=== PATIENT | male | born 1955 | race Caucasian/White ===

== ENCOUNTER 2017-01-20 11:41 | Inpatient (IN) | payer OTHER ==
--- NOTE | 2017-01-20 12:50 | EDPHY ---
H & P Smoking Status: Never smoked Time Seen by Provider: 01/20/17 11:58 HPI/ROS: CHIEF COMPLAINT: Cellulitis right leg HISTORY OF PRESENT ILLNESS: 61-year-old male presents to the emergency department with cellulitis to his right lower leg. The patient has a history of recurring cellulitis. He thinks that this is the 5th time in the last 5 years. He takes doxycycline daily prophylactically. He started noting pain and swelling yesterday and he states that it is worse this morning. He took ibuprofen earlier this morning. Unknown fevers and chills. No pain in his groin. He feels that this is very similar to his previous recurring cellulitis infections typically in the right leg. He has had both legs in the past. He did note some swelling in his left lower leg. He denies chest pain or difficulty breathing. Denies abdominal pain. Denies neck or back pain. REVIEW OF SYSTEMS: Constitutional: No fever, no chills. Eyes: No double or blurry vision. ENT: No sore throat. Respiratory: No cough, no shortness of breath. Cardiac: No chest pain. Gastrointestinal: No abdominal pain, vomiting or diarrhea. Genitourinary: No dysuria. Musculoskeletal: No neck or back pain. Skin: No rashes. Neurological: No headache. (Meghan Mclean M) Past Medical/Surgical History: Traumatic brain injury, dyslipidemia, chronic back pain with narcotic dependence , depression, GERD, recurring cellulitis not MRSA,, migraine headaches, bipolar , hypertension (Stefanie Mcleana M) Social History: and lives in [place] (Vinay,Meghan M) Physical Exam: General Appearance: Alert, no distress. Temperature 37.1degrees, 90% on room air Eyes: Pupils equal and round. Extraocular motions are all intact. ENT: Mouth: Mucous membranes moist. Respiratory: No wheezing, rhonchi, or rales, lungs are clear to auscultation. Cardiovascular: Regular rate and rhythm. Gastrointestinal: Abdomen is soft and nontender, no masses, no rebound or guarding, bowel sounds normal. Neurological: Alert and oriented x 3, cranial nerves II through XII grossly intact Skin: Warm and dry, no rashes. Musculoskeletal: Nontender to palpate along the cervical, thoracic or lumbar spine. Neck is supple. Extremities: 3+ Pedal edema noted bilaterally. Redness and warmth noted to the anterior aspect of the right mid calf down to the ankle. It is mildly tender to palpate. It is warm. No abrasions. Full range of motion of his ankles. Full range of motion of his knee. Well-healed surgical incision noted to the anterior aspect of the right knee. Psychiatric: Patient is oriented X 3, there is no agitation. (Meghan Mclean) Constitutional: Initial Vital Signs Temperature (C) 37.1 C 01/20/17 11:51 Heart Rate 70 01/20/17 11:51 Respiratory Rate 16 01/20/17 11:51 Blood Pressure 142/75 H 01/20/17 11:51 O2 Sat (%) 90 L 01/20/17 11:51 O2 Delivery Mode Room Air Allergies/Adverse Reactions: Sulfa (Sulfonamide Antibiotics) Allergy (Mild, Verified 04/08/16 18:41) RASH/RED SKIN YELLOWJACKETS Allergy (Severe, Uncoded 01/03/14 23:30) INFLAMMED AND SWOLLEN ENVIRONMENTAL Allergy (Mild, Uncoded 01/03/14 23:30) NASAL CONGESTION Home Medications: Medication Instructions Recorded Butterbur Root Extract [Petadolex 75 mg PO TID 04/08/16 75] Fluticasone Nasal [Flonase Nasal 4 sprays NASAL HS 04/08/16 [facility]] HYDROmorphone HCL [Dilaudid] 8 mg PO TID 04/08/16 Methocarbamol [Robaxin 750 mg (*)] 750 mg PO TID 04/08/16 OLANZapine [ZyPREXA 2.5 mg (*)] 2.5 mg PO 04/08/16 Oxymorphone HCl [OPANA ER] 15 mg PO TID 04/08/16 Sertraline HCl [Zoloft 50mg (*)] 150 mg PO DAILY 04/08/16 Chondroitin Sulfate A Sodium 1,200 mg PO DAILY 04/27/16 [Optiflex-C] Gluc Dee/Chondro Dee A/Vit C/Mn 1 each PO BID 04/27/16 [Glucosamine 1,500 Complex Cap] ALPRAZolam [Xanax 1 MG (*)] 1 mg PO DAILY PRN 01/20/17 Aspirin [Aspirin 81mg (*)] 81 mg PO DAILY 01/20/17 Brimonidine/Timolol [Combigan (*)] 1 drops EACHEYE HS 01/20/17 Cholecalciferol Vit D3 [Vitamin D3 2,000 units PO BID 01/20/17 (*)] Cyanocobalamin [Vitamin B12 (*)] 1,000 mcg PO DAILY 01/20/17 Desloratadine [Clarinex] 5 mg PO DAILY PRN 01/20/17 Diclofenac 35 35 mg PO TID 01/20/17 Docusate Sodium [Colace 100 MG (*)] 200 mg PO HS 01/20/17 Feosol 28 mg PO DAILY 01/20/17 Fish Oil/Dha/Epa [Fish Oil 1,200 2 cap PO BID 01/20/17 mg Fish Oil] Fluocinonide 1 gm TP DAILY PRN 01/20/17 Herbals/Supplements -Info Only 1 ea PO DAILY 01/20/17 Lansoprazole [Prevacid] 30 mg PO DAILY 01/20/17 Magnesium Oxide [Magnesium] 500 mg PO HS 01/20/17 Melatonin [Melatonin 3 MG (*)] 3 mg PO HS 01/20/17 OLANZapine [ZyPREXA 2.5 mg (*)] 10 mg PO HS 01/20/17 TESTOSTERONE [Androgel 1.62% pump] 5 g TD DAILY 01/20/17 Travoprost Z 0.004% [Travatan Z 1 drops EACHEYE HS 01/20/17 0.004% (*)] Zaleplon [Sonata] 10 mg PO HS PRN 01/20/17 Zolpidem Tartrate [Ambien 10 mg] 10 mg PO HS PRN 01/20/17 Cephalexin [Keflex (*)] 500 mg PO Q6H #40 cap 01/22/17 Medical Decision Making ED Course/Re-evaluation: 61-year-old male presents to the emergency department with cellulitis to his right lower extremity. The patient has had this numerous times. No history of MRSA. The patient has already been taking doxycycline prophylactically. I feel that given that he has failed outpatient management, he will be admitted to the hospital for IV antibiotics. Patient will be admitted to Dr. Julio Cevallos. I spoke with the on-call infectious disease doctor, Dr. Sherri Guzman today, who recommended 1 g of cefazolin IV given normal renal function. (Meghan Mclean) I did not see this patient while he was in the emergency department. However his care was discussed with the PA while the patient was in the department. I agree with treatment plan and management (Marcelo Acosta) Differential Diagnosis: Including but not limited to cellulitis, DVT, necrotizing fasciitis, congestive heart failure (Meghan Mclean) - Data Points Laboratory Results: Laboratory Results 01/20/17 12:50 01/20/17 12:50 Medications Given: Discontinued Medications Acetaminophen (Tylenol) 650 mg PO Q4HRS PRN PRN Reason: Pain, Mild/Fever, Can Take PO Stop: 07/19/17 13:32 Last Admin: 01/21/17 13:00 Dose: 650 mg Aspirin (Aspirin) 81 mg PO DAILY [facility]I Stop: 07/20/17 08:59 Last Admin: 01/22/17 09:27 Dose: 81 mg Brimonidine/Timolol (Combigan) 1 drops EACHEYE CASI Stop: 07/19/17 20:59 Last Admin: 01/21/17 20:25 Dose: 1 drops Cholecalciferol (Vitamin D) 2,000 units PO BID [facility] Stop: 07/19/17 20:59 Last Admin: 01/22/17 09:27 Dose: 2,000 units Docusate Sodium (Colace) 200 mg PO HS [facility]I Stop: 07/19/17 20:59 Last Admin: 01/21/17 20:24 Dose: 200 mg Enoxaparin Sodium (Lovenox) 40 mg SC DAILY [facility] Stop: 07/20/17 08:59 Last Admin: 01/22/17 09:30 Dose: 40 mg Ferrous Sulfate (Slow Fe) 140 mg PO DAILY [facility] Stop: 07/20/17 08:59 Last Admin: 01/22/17 09:28 Dose: 140 mg Fluticasone Propionate (Flonase Nasal [facility]) 4 sprays EACHNARE HS [facility]I Stop: 07/19/17 20:59 Last Admin: 01/21/17 20:25 Dose: 4 sprays Furosemide (Lasix Injection) 20 mg IVP EDNOW ONE Stop: 01/20/17 13:39 Last Admin: 01/20/17 14:35 Dose: 20 mg Glucosamine/Chondroitin (Glucosamine/Chondroitin) 1 each PO BID [facility] Stop: 07/20/17 08:59 Last Admin: 01/22/17 09:28 Dose: 1 each Hydromorphone HCl (Dilaudid) 8 mg PO TID [facility] Stop: 01/30/17 15:59 Last Admin: 01/22/17 09:27 Dose: 8 mg Cefazolin Sodium/Dextrose (Ancef 1 Gm (Premix)) 50 mls @ 200 mls/hr IV EDNOW ONE PRN Reason: Protocol Stop: 01/20/17 13:42 Last Admin: 01/20/17 13:58 Dose: 50 mls Cefazolin Sodium/Dextrose (Ancef 1 Gm (Premix)) 50 mls @ 200 mls/hr IV Q8H CASI PRN Reason: Protocol Stop: 02/19/17 20:59 Last Admin: 01/21/17 04:54 Dose: 50 mls Cefazolin Sodium/Dextrose (Ancef 2 Gm (Premix)) 100 mls @ 200 mls/hr IV Q8HRS [facility]I PRN Reason: Protocol Stop: 02/20/17 12:59 Last Admin: 01/22/17 13:46 Dose: 100 mls Magnesium Oxide (Magnesium Oxide) 400 mg PO HS [facility] Stop: 07/19/17 20:59 Last Admin: 01/21/17 20:24 Dose: 400 mg Melatonin (Melatonin) 3 mg PO [facility] Stop: 07/19/17 20:59 Last Admin: 01/21/17 21:55 Dose: 3 mg Methocarbamol (Robaxin) 750 mg PO TID [facility] Stop: 07/19/17 15:59 Last Admin: 01/22/17 09:28 Dose: 750 mg Miscellaneous Medication (Butterbur Root Extract [Petadolex 75]) 75 mg PO TID [facility] Stop: 07/19/17 15:59 Last Admin: 01/22/17 14:44 Dose: Not Given Miscellaneous Medication (Chondroitin Sulfate A Sodium [Optiflex-C]) 1,200 mg PO DAILY [facility] Stop: 07/20/17 08:59 Last Admin: 01/22/17 09:31 Dose: Not Given Miscellaneous Medication (Diclofenac 35) 35 mg PO TID [facility] Stop: 07/19/17 15:59 Last Admin: 01/22/17 14:44 Dose: Not Given Miscellaneous Medication (Oxymorphone Hcl [Opana Er]) 15 mg PO TID [facility] Stop: 07/19/17 15:59 Last Admin: 01/22/17 09:51 Dose: 15 mg Miscellaneous Medication (Testosterone [Androgel 1.62% Pump]) 5 g TD DAILY [facility] Stop: 07/20/17 08:59 Last Admin: 01/22/17 09:33 Dose: Not Given Olanzapine (Zyprexa) 2.5 mg PO 12 [facility] Stop: 07/20/17 08:59 Last Admin: 01/22/17 12:23 Dose: 2.5 mg Olanzapine (Olanzapine) 10 mg PO HS [facility] Stop: 07/19/17 20:59 Last Admin: 01/21/17 20:29 Dose: 10 mg [id number] Ethyl Esters (Fish Oil) 2,000 mg PO BID [facility] Stop: 07/19/17 20:59 Last Admin: 01/22/17 09:28 Dose: 2,000 mg Pantoprazole Sodium (Protonix) 40 mg PO DAILY [facility] Stop: 07/20/17 08:59 Last Admin: 01/22/17 09:27 Dose: 40 mg Sertraline HCl (Zoloft) 150 mg PO DAILY [facility] Stop: 07/20/17 08:59 Last Admin: 01/22/17 09:28 Dose: 150 mg Travoprost (Travatan Z 0.004%) 1 drops EACHEYE HS [facility] Stop: 07/19/17 20:59 Last Admin: 01/21/17 20:24 Dose: 1 drop Vitamin B Complex (Vitamin B12) 1,000 mcg PO DAILY [facility] Stop: 07/20/17 08:59 Last Admin: 01/22/17 09:28 Dose: 1,000 mcg Zolpidem Tartrate (Ambien) 10 mg PO HS PRN PRN Reason: Sleep/Insomnia Stop: 07/19/17 15:18 Last Admin: 01/21/17 21:56 Dose: 10 mg Departure - Departure Disposition: [facility] Inpatient Acute Clinical Impression: Cellulitis of right leg Condition: Good
[2017-01-20 13:16] LABS: % IMMATURE GRANULYOCYTES 0.4 % (0.0-1.1); ABSOLUTE IMMATURE GRANULOCYTES 0.05 10^3/uL (0.00-0.10); ADD DIFF? NO; ADD MORPH? NO; ADD SCAN? NO; ATYPICAL LYMPHOCYTE FLAG 0 (0-99); FRAGMENT RBC FLAG 0 (0-99); HEMATOCRIT 40.1 % (40.0-51.0); HEMOGLOBIN 13.7 g/dL (13.7-17.5); LEFT SHIFT FLG 0 (0-99); LIPEMIA HEMOLYSIS FLAG 90 (0-99); MEAN CELL HEMOGLOBIN 30.4 pg (27.9-34.1); MEAN CELL HEMOGLOBIN CONCENTR. 34.2 g/dL (32.4-36.7); MEAN CELL VOLUME 88.9 fL (81.5-99.8); MEAN PLATELET VOLUME 11.2 fL (8.7-11.7); PLATELET CLUMPS FLAG 0 (0-99); PLATELET COUNT 176 10^3/uL (150-400); RED BLOOD CELL COUNT 4.51 10^6/uL (4.40-6.38); RED CELL DISTRIBUTION WIDTH 12.5 % (11.5-15.2)
[2017-01-20 13:28] LABS: ANION GAP 11 mEq/L (8-16); CALCIUM 9.7 mg/dL (8.5-10.4); CARBON DIOXIDE 25 mEq/l (22-31); CHLORIDE 100 mEq/L (97-110); GLOMERULAR FILTRATION RATE > 60; GLUCOSE 123 mg/dL (70-100); POTASSIUM 4.3 mEq/L (3.5-5.2); SODIUM 136 mEq/L (134-144)
[2017-01-20] MEDS ORDERED: ONDANSETRON 4 MG/2 ML VIAL IVP PRN (13:33)
[2017-01-20] MEDS ORDERED: OXYCODONE/APAP 5/325 TAB PO PRN (13:33)
[2017-01-20] MEDS ORDERED: ONDANSETRON DISINTEGRATING 4 MG TAB PO PRN (13:33)
[2017-01-20] MEDS ORDERED: FUROSEMIDE 20 MG/2 ML VIAL IVP ONE (13:38)
[2017-01-20] MEDS ORDERED: FLUOCINONIDE 0.05% 15 GM CREAM TP PRN (14:06)
[2017-01-20] MEDS ORDERED: ALPRAZolam 1 MG TAB PO PRN (14:06)
--- NOTE | 2017-01-20 14:13 | GHP ---
[f rep st] HISTORY AND PHYSICAL DATE OF ADMISSION: 01/20/2017 CHIEF COMPLAINT: Right lower extremity redness. HISTORY OF PRESENT ILLNESS: The patient is a 61-year-old male, who has a history of recurrent cellu litis, who presents to the emergency room today with complaints of right lower extremity erythema as well as warmth and increased swelling. He has had multiple episodes of cellulitis in the past. He is normally treated with doxycycline prophylactically and is followed by Infectious Disease. He st ates that he was in his normal state of health until yesterday when he started noticing some increas ing edema in his lower extremities. He continued to take his doxycycline as previously prescribed. He noted that the erythema became worse as well as the edema in the right greater than the left. U letty awakening this morning, he noted some significant pain and discomfort. [facility] presented [facility] room for further evaluation. He tells me that last night he did have some muscle aches and th at he was unable to use his compression stockings secondary to his discomfort. He has no complaints of headache. No vision changes. No hearing loss. No complaints of chest pain, cough, dyspnea, sh ortness of breath. He has no nausea, vomiting, diarrhea. REVIEW OF SYSTEMS: A comprehensive 10-point review of systems is negative other than noted in the H PI. PAST MEDICAL HISTORY: 1. Traumatic brain injury, complicated by intracranial hemorrhage in 1988. 2. Migraines. 3. Essential tremor. 4. Chronic low back pain, on chronic narcotic dependency. 5. Dyslipidemia. 6. Bipolar disorder. 7. Hypertension. 8. Recurrent cellulitis. MEDICATIONS: Have not been adjusted by the pharmacist, but will be reconciled when they are. ALLERGIES: Sulfa. FAMILY HISTORY: Reviewed and noncontributory. SOCIAL HISTORY: The patient denies any tobacco use. He drinks occasional beer. He resides with hi s . PHYSICAL EXAM: GENERAL: The patient is alert, no acute distress. VITAL SIGNS: Afebrile at 37.1, pulse is 70, respiratory rate 16, blood pressure is 142/75. He is saturating 90% on room air. I lomeli ve seen and evaluated the patient on the day of admission. HEENT: Normocephalic, atraumatic. Muco sedrick membranes are moist. Pupils equal, round, reactive to light. NECK: Supple. LUNGS: Clear to auscultation bilaterally. No rhonchi or wheezes appreciated. CARDIOVASCULAR: Regular rate and rhy thm. There is no gallop noted. ABDOMEN: Bowel sounds are positive. Soft and nontender. There is no guarding or rigidity noted. EXTREMITIES: There is notable edema bilaterally in his lower extre mities as well as erythema on the right lower extremity. Upper extremities are within normal limits . Range of motion is intact. SKIN: Without rashes or lesions; however, right lower extremity agai n does have erythema with warmth to the touch. LABORATORY EVALUATION: White blood cell count is 11.6. Other laboratory evaluation thus far is wit hin normal limits. ASSESSMENT AND PLAN: This is a 61-year-old male with recurrent history of cellulitis presenting to the emergency room with complaints of lower extremity erythema. He is being admitted for: 1. Right lower extremity cellulitis. The patient has been initiated on Ancef. Dr. Guzman from [facility] ctious Disease has been contacted and will consult on the patient during this hospitalization. He h as been previously on doxycycline prophylactically, which he tells me he has not missed any doses an d has been taking regularly. We will continue his IV Ancef with further recommendations per Dr. Luevano from Infectious Disease. 2. Bilateral lower extremity edema. I have given the patient 20 mg IV Lasix to try to eliminate so me of his edema. He will also get an ultrasound to ensure there are no deep venous thromboses as we ll as elevating his lower extremities to assist in his edematous situation. 3. History of closed head injury. He appears to be at his baseline. 4. Chronic pain with chronic narcotic dependency. We will reinitiate the patient's previously pres cribed home medications as prescribed. We will do every effort to not increase his narcotic pain me dication during this hospitalization if avoidable. 5. History of dyslipidemia. Again, his regular medications will be continued. 6. History of tremor. We will continue his propranolol. 7. History of hypertension. His home medications will be continued during this hospitalization. I will review the patient's care with Dr. Marcel Cevallos. I have discussed the patient's admission, pl an of action with Meghan Mclean from the emergency room. Further action will be taken as needed dur ing this patient's hospitalization. /[id number]/MODL
[2017-01-20] MEDS ORDERED: TEMAZEPAM 15 MG CAP PO PRN (15:24)
--- NOTE | 2017-01-20 15:47 | GCON ---
[f rep st] CONSULTATION INFECTIOUS DISEASE CONSULTATION DATE OF CONSULTATION: 01/20/2017 REFERRING PHYSICIAN: Pennie Anne NP REASON FOR CONSULT: To assist in the management of this 61-year-old male with history of recurrent cellulitis of the lower extremities, now admitted for right lower extremity cellulitis. HISTORY OF PRESENT ILLNESS: The patient is a 61-year-old male who is known to my colleague, Dr. Bermudez. His previous medical history is notable for the followin. History of recurrent cellulitis of the lower extremities. Last episode was November 2015. Given that the patient has had MSSA isolated from his nares and other skin surfaces in the past, decolonization with mupirocin and Hibiclens was attempted. The patient has been on chronic suppression with doxycycline 100 mg daily. 2. 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 3. Traumatic brain injury, complicated by intracranial hemorrhage in 1988. 4. Migraines. 5. Essential tremor. 6. Chronic low back pain, on narcotics. 7. Dyslipidemia. 8. Obesity. 9. Bipolar disorder. 10. Hypertension. Regarding his present issues, the patient tells me that he began to get his usual symptoms of cellulitis yesterday, with the prodrome of achiness and fatigue. Early this morning he noticed that his right lower extremity was red, hot, and swollen. Of note, the patient states that his lower extremity edema has become worse recently, and he feels that this is the culprit. He has been adherent 100% to the doxycycline for chronic suppression, started by my colleague as outlined above, Dr. Bermudez. He has been unable to use his compression stockings recently because of the lower extremity edema. He denies fevers, shaking chills, nausea, vomiting, or diarrhea. REVIEW OF SYSTEMS: Positive for muscle aches and lower extremity edema and erythema as outlined above, otherwise 10 systems are reviewed and all are negative. The patient, because of the increasing erythema, presented to [facility]. PREVIOUS MEDICAL HISTORY: As outlined above. ALLERGIES: Sulfa. MEDICATIONS: Presently include: Ancef 1 g IV q.8 hours, Zoloft, Zofran, Zyprexa, Robaxin, melatonin, Colace, Xanax, Tylenol, Combigan. SOCIAL HISTORY: The patient denies any water exposure outside of his shower. No other unusual exposures. He does walk around barefoot in the house. He is and has 3 children. 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 No recent travel within or outside the [place]. Denies tobacco. One beer per week. No other illicit substances. No other unusual exposures. The patient's last tetanus booster was in 2009. PHYSICAL EXAM: VITAL SIGNS: T current 37.1, heart rate 92, blood pressure 140/ 78. GENERAL: Obese male, lying in bed, nontoxic, no apparent distress. HEENT : Atraumatic, normocephalic. Pupils equal, round, reactive to light. Extraocular movements are intact. No conjunctival injection or icterus, petechiae. Mucous membranes moist. No oral lesions noted. Dentition in fair repair. NECK: No thyromegaly or palpable thyroid nodules. CARDIOVASCULAR: S1 , S2. Very soft systolic murmur heard right upper sternal border. LUNGS: Clear to auscultation bilaterally with no rales, rhonchi, or wheeze. Poor inspiratory effort. No increased respiratory effort. ABDOMEN: Obese, soft. No organomegaly or tenderness to palpation. EXTREMITIES: Notable for lower extremity edema. The right lower extremity is beet red and warm with tenderness along the calf. It is slightly larger than the left lower extremity. SKIN: Warm and dry. No evidence of folliculitis, furunculosis, or tinea pedis. LABORATORY DATA: MICROBIOLOGIC DATA: Previous naris swab with MRSA, as well as right septic joint fluid with MRSA. Blood cultures x2 and during this admission are pending, white blood cell count of 11.6, hematocrit 40, platelet count 176, BUN and creatinine 17/1.0, and glucose of 123. No radiographic data. IMPRESSION: 61-year-old male with history of recurrent lower extremity cellulitis with known methicillin-sensitive staphylococcus aureus colonization, admitted with recurrent right lower extremity cellulitis. The patient has broken through his chronic suppression with doxycycline. Suspect the usual culprits of Staph aureus or Streptococcus. Thankfully, he does not look toxic with no evidence of necrotizing cellulitis or fasciitis. PLAN: 1. Continue Ancef 1 g IV q.8 hours with leg elevation. 2. Defer to my colleague, Dr. Bermudez, regarding a future agent for chronic suppression moving forward. 3. Agree with lower extremity noninvasive ultrasound to evaluate for deep venous thrombosis. Thank you very much for consulting Infectious Disease. We will continue to follow this patient with you. /[id number]/MODL MTDD
[2017-01-20] MEDS: HYDROmorphONE/DILAUDID 4 MG TAB PO SCH ×2 (16:30→21:34)
[2017-01-20] MEDS: METHOCARBAMOL 750 MG TAB PO SCH ×2 (16:30→21:35)
[2017-01-20] MEDS: OXYMORPHONE HCL 15 MG PO SCH ×2 (16:57→21:33)
[2017-01-20] MEDS: ACETAMINOPHEN 325 MG TAB PO PRN ×2 (18:06→21:35)
[2017-01-20] MEDS: DICLOFENAC 35 MG PO SCH ×2 (18:14→21:25)
[2017-01-20] MEDS: [UNRECOGNIZED DRUG - OTHER] PO SCH ×2 (18:14→21:24)
[2017-01-20] MEDS: CHOLECALCIFEROL VIT D3 2,000 UNITS TAB/CAP PO SCH (19:59)
[2017-01-20] MEDS: MAGNESIUM OXIDE 400 MG TAB PO SCH (19:59)
[2017-01-20] MEDS: OMEGA-3 FATTY ACIDS 1,000 MG CAP PO SCH (19:59)
[2017-01-20] MEDS: DOCUSATE SODIUM 100 MG CAP PO SCH (20:00)
[2017-01-20] MEDS: FLUTICASONE NASAL 120 SPRAYS/16 GM MDI EACHNARE SCH (20:01)
[2017-01-20] MEDS: TRAVOPROST Z 0.004% 2.5 ML OPHT.BTL EACHEYE SCH (20:02)
[2017-01-20] MEDS: BRIMONIDINE/TIMOLOL 5 ML OPHT.BTL EACHEYE SCH (20:02)
[2017-01-20] MEDS: OLANZapine 10 MG TAB PO SCH (20:09)
[2017-01-20] MEDS: ZOLPIDEM TARTRATE 5 MG TAB PO PRN (21:35)
[2017-01-20] MEDS: MELATONIN 3 MG TAB PO SCH (21:36)
[2017-01-21] MEDS ORDERED: CETIRIZINE 10 MG TAB PO PRN (09:00)
[2017-01-21] MEDS ORDERED: Herbals/Supplements -Info Only PO SCH (09:00)
[2017-01-21] MEDS: METHOCARBAMOL 750 MG TAB PO SCH ×3 (09:51→21:55)
[2017-01-21] MEDS: OMEGA-3 FATTY ACIDS 1,000 MG CAP PO SCH ×2 (09:51→20:30)
[2017-01-21] MEDS: PANTOPRAZOLE SODIUM 40 MG TAB PO SCH (09:52)
[2017-01-21] MEDS: GLUCOSAMINE/CHONDROITIN CAP PO SCH ×2 (09:52→20:23)
[2017-01-21] MEDS: FERROUS SULFATE 140 MG TAB.ER PO SCH (09:52)
[2017-01-21] MEDS: CYANO/VITAMIN B12 1000 MCG TAB PO SCH (09:52)
[2017-01-21] MEDS: CHOLECALCIFEROL VIT D3 2,000 UNITS TAB/CAP PO SCH ×2 (09:52→21:54)
[2017-01-21] MEDS: ASPIRIN 81 MG CHEWABLE TAB PO SCH (09:52)
[2017-01-21] MEDS: OLANZapine 2.5 MG TAB PO SCH ×2 (09:52→12:38)
[2017-01-21] MEDS: HYDROmorphONE/DILAUDID 4 MG TAB PO SCH ×3 (09:53→21:54)
[2017-01-21] MEDS: SERTRALINE HCL 50 MG TAB PO SCH (09:53)
[2017-01-21] MEDS: OXYMORPHONE HCL 15 MG PO SCH ×3 (09:53→21:54)
[2017-01-21] MEDS: ENOXAPARIN 40 MG/0.4 ML SYR SC SCH (09:57)
[2017-01-21] MEDS: CHONDROITIN SULFATE A SODIUM 1200 MG PO SCH (10:06)
[2017-01-21] MEDS: [UNRECOGNIZED DRUG - OTHER] PO SCH ×3 (10:06→22:54)
[2017-01-21] MEDS: DICLOFENAC 35 MG PO SCH ×3 (10:06→22:54)
[2017-01-21] MEDS: TESTOSTERONE TD SCH (10:07)
--- NOTE | 2017-01-21 12:08 | PCMIDPN ---
Assessment/Plan: 1. Right lower extremity cellulitis: This is fairly extensive, and has spread to the posterior aspect of his calf. Will increase Ancef to 2 g IV q.8 hours. Continue leg elevation as best as he can given lower back discomfort. Beet red erythema is starting to turn more of a brick red color in the pretibial area. Subjective: In bed, reading his book. His leg is somewhat elevated as best he can. Had some chills, but no rigors. No diarrhea. Objective: Ancef 1 g IV q.8 hours day 0 T-max 38.3degrees Vital Signs Temp Pulse Resp BP Pulse Ox 37.1 C 78 16 136/79 H 95 01/21/17 08:00 01/21/17 08:00 01/21/17 08:00 01/21/17 08:00 01/21/17 08:56 01/20/17 01/21/17 01/22/17 05:59 05:59 05:59 Intake Total 750 Output Total 900 Balance -150 Blood cultures no growth so far - Physical Exam General Appearance: no apparent distress, obese EENT: pharynx normal, No thrush Respiratory: lungs clear Cardiac/Chest: systolic murmur Extremities: other (Right lower extremity edematous, but edema seems less today with a evident skin puckering along the pretibial area. Erythema in this area has turned more of a beet red color, but the erythema is more beet red along the posterior calf.) ICD10 Worksheet Patient Problems: Problems Problem Status Onset Cellulitis of right leg Acute Cellulitis of leg Active Ataxia Acute C. difficile diarrhea Acute 02/06/15 Concussion Acute Headache Acute Hemiparesis Acute Migraine Acute Mood disorder Acute Spell of transient neurologic symptoms Acute Wrist joint infection Acute
--- NOTE | 2017-01-21 12:34 | HOSPPROG ---
Hospitalist Progress Note Assessment/Plan: DIAGNOSES: -Acute, recurrent, cellulitis of right leg ; no evidence of abscess or necrosis -Chronic bilateral leg edemaIs at his baseline -Exacerbation of muscular lumbar back pain due to lying in bed for leg elevation for his infection PLANS: continue current antibiotic leg elevation heating pad for back pain in addition to his meds SUBJECTIVE: no change in leg pain today no chills or sweats today, had some last night OBJECTIVE Vitals reviewed: some fever last night, normal vitals so far today Exam: alert oriented skin warm dry color ok resps not labored lungs clear BSs heart regular abd soft nondistended nontender, bowel sounds present limbs R leg still w some cellulitis unchanged from yest, no abscess or necrosis , no ulcers iv site ok Objective: Vital Signs Temp Pulse Resp BP Pulse Ox 37.1 C 78 16 136/79 H 95 01/21/17 08:00 01/21/17 08:00 01/21/17 08:00 01/21/17 08:00 01/21/17 08:56 01/20/17 01/21/17 01/22/17 06:59 06:59 06:59 Intake Total 750 Output Total 900 Balance -150 ICD10 Worksheet Patient Problems: Problems Problem Status Onset Cellulitis of right leg Acute Cellulitis of leg Active Ataxia Acute C. difficile diarrhea Acute 02/06/15 Concussion Acute Headache Acute Hemiparesis Acute Migraine Acute Mood disorder Acute Spell of transient neurologic symptoms Acute Wrist joint infection Acute
[2017-01-21] MEDS: ceFAZolin 2 GM/DEXTROSE 100 ML IV SCH ×2 (12:38→21:53)
[2017-01-21] MEDS: ACETAMINOPHEN 325 MG TAB PO PRN (13:00)
[2017-01-21] MEDS: MAGNESIUM OXIDE 400 MG TAB PO SCH (20:24)
[2017-01-21] MEDS: TRAVOPROST Z 0.004% 2.5 ML OPHT.BTL EACHEYE SCH (20:24)
[2017-01-21] MEDS: DOCUSATE SODIUM 100 MG CAP PO SCH (20:24)
[2017-01-21] MEDS: BRIMONIDINE/TIMOLOL 5 ML OPHT.BTL EACHEYE SCH (20:25)
[2017-01-21] MEDS: FLUTICASONE NASAL 120 SPRAYS/16 GM MDI EACHNARE SCH (20:25)
[2017-01-21] MEDS: OLANZapine 10 MG TAB PO SCH (20:29)
[2017-01-21] MEDS: MELATONIN 3 MG TAB PO SCH (21:55)
[2017-01-21] MEDS: ZOLPIDEM TARTRATE 5 MG TAB PO PRN (21:56)
[2017-01-22] MEDS: ceFAZolin 2 GM/DEXTROSE 100 ML IV SCH ×2 (05:04→13:46)
[2017-01-22 05:17] LABS: % IMMATURE GRANULYOCYTES 0.5 % (0.0-1.1); ABSOLUTE IMMATURE GRANULOCYTES 0.04 10^3/uL (0.00-0.10); ADD DIFF? NO; ADD MORPH? NO; ADD SCAN? NO; ATYPICAL LYMPHOCYTE FLAG 10 (0-99); FRAGMENT RBC FLAG 0 (0-99); HEMATOCRIT 42.5 % (40.0-51.0); HEMOGLOBIN 14.2 g/dL (13.7-17.5); LEFT SHIFT FLG 0 (0-99); LIPEMIA HEMOLYSIS FLAG 80 (0-99); MEAN CELL HEMOGLOBIN 30.7 pg (27.9-34.1); MEAN CELL HEMOGLOBIN CONCENTR. 33.4 g/dL (32.4-36.7); MEAN CELL VOLUME 91.8 fL (81.5-99.8); MEAN PLATELET VOLUME 11.4 fL (8.7-11.7); PLATELET CLUMPS FLAG 0 (0-99); PLATELET COUNT 178 10^3/uL (150-400); RED BLOOD CELL COUNT 4.63 10^6/uL (4.40-6.38)
[2017-01-22 05:34] LABS: ALANINE AMINOTRANSFERASE 69 IU/L (21-72); ALBUMIN 4.1 g/dL (3.5-5.0); ALKALINE PHOSPHATASE 94 IU/L (38-126); ASPARTATE AMINOTRANSFERASE 39 IU/L (17-59); BILIRUBIN,TOTAL 0.6 mg/dL (0.1-1.4); CALCIUM 9.5 mg/dL (8.5-10.4); CARBON DIOXIDE 23 mEq/l (22-31); CHLORIDE 106 mEq/L (97-110); GLOMERULAR FILTRATION RATE > 60; GLUCOSE 145 mg/dL (70-100); SODIUM 143 mEq/L (134-144); TOTAL PROTEIN 6.9 g/dL (6.3-8.2)
[2017-01-22 05:41] LABS: ANION GAP 14 mEq/L (8-16); POTASSIUM 4.1 mEq/L (3.5-5.2)
[2017-01-22] MEDS: CHOLECALCIFEROL VIT D3 2,000 UNITS TAB/CAP PO SCH (09:27)
[2017-01-22] MEDS: PANTOPRAZOLE SODIUM 40 MG TAB PO SCH (09:27)
[2017-01-22] MEDS: ASPIRIN 81 MG CHEWABLE TAB PO SCH (09:27)
[2017-01-22] MEDS: HYDROmorphONE/DILAUDID 4 MG TAB PO SCH (09:27)
[2017-01-22] MEDS: OLANZapine 2.5 MG TAB PO SCH ×2 (09:28→12:23)
[2017-01-22] MEDS: SERTRALINE HCL 50 MG TAB PO SCH (09:28)
[2017-01-22] MEDS: METHOCARBAMOL 750 MG TAB PO SCH (09:28)
[2017-01-22] MEDS: GLUCOSAMINE/CHONDROITIN CAP PO SCH (09:28)
[2017-01-22] MEDS: FERROUS SULFATE 140 MG TAB.ER PO SCH (09:28)
[2017-01-22] MEDS: CYANO/VITAMIN B12 1000 MCG TAB PO SCH (09:28)
[2017-01-22] MEDS: OMEGA-3 FATTY ACIDS 1,000 MG CAP PO SCH (09:28)
[2017-01-22] MEDS: ENOXAPARIN 40 MG/0.4 ML SYR SC SCH (09:30)
[2017-01-22] MEDS: [UNRECOGNIZED DRUG - OTHER] PO SCH ×2 (09:31→14:44)
[2017-01-22] MEDS: CHONDROITIN SULFATE A SODIUM 1200 MG PO SCH (09:31)
[2017-01-22] MEDS: DICLOFENAC 35 MG PO SCH ×2 (09:31→14:44)
[2017-01-22] MEDS: TESTOSTERONE TD SCH (09:33)
[2017-01-22 09:49] VITALS: BP 178/93; PULSE 68; RESP 18; TEMP 98; O2SAT 91
[2017-01-22] MEDS: OXYMORPHONE HCL 15 MG PO SCH (09:51)
--- NOTE | 2017-01-22 11:08 | PCMIDPN ---
Assessment/Plan: Assessment: Right lower extremity cellulitis. By exam this appears more streptococcal and staphylococcal. Would also not likely be staphylococcal because the patient was on doxycycline prophylaxis. Will continue the treatment by transitioning from IV cefazolin to oral Keflex 500 mg p.o. four times daily to complete a 10 day course. Patient can discharge home today. Follow-up in the office in 7-10 days. Plan: 1. discontinue cefazolin. Start cephalexin 500 mg p. o. 4 times daily. Total duration 10 days 2. Stable for discharge home. 01/22/17 11:05 01/22/17 11:05 Subjective: Patient is resting in his hospital bed. No new fevers or chills. Notes that the swelling and redness in the right lower extremity is diminished. Objective: Cefazolin # 1 Vital Signs Temp Pulse Resp BP Pulse Ox 36.6 C 68 18 178/93 H 91 L 01/22/17 09:49 01/22/17 09:49 01/22/17 09:49 01/22/17 09:49 01/22/17 09:49 Laboratory Results 01/22/17 05:00 01/22/17 05:00 01/21/17 01/22/17 01/23/17 05:59 05:59 05:59 Intake Total 750 500 Output Total 900 750 Balance -150 -250 - Physical Exam General Appearance: WD/WN, alert, no apparent distress, non-toxic Respiratory: lungs clear, normal breath sounds, No respiratory distress Cardiac/Chest: regular rate, rhythm, No tachycardia Extremities: non-tender, swelling ( mild right lower extremity), erythema ( Mild right lower extremity), No normal inspection ( right lower extremity with mild residual inflammation in the right lower leg. No fluctuance. Minimally tender.) Skin: normal color, warm/dry, No rash Neuro/Psych: alert, normal mood/affect, oriented x 3 ICD10 Worksheet Patient Problems: Problems Problem Status Onset Cellulitis of right leg Acute Cellulitis of leg Active Ataxia Acute C. difficile diarrhea Acute 02/06/15 Concussion Acute Headache Acute Hemiparesis Acute Migraine Acute Mood disorder Acute Spell of transient neurologic symptoms Acute Wrist joint infection Acute
--- NOTE | 2017-01-22 15:00 | PDDCSUM ---
Discharge Summary Discharge Summary: DISCHARGE DIAGNOSES: -Acute cellulitis of calf and tibial area without abscess or necrosis -chronic stasis edema of the legs with chronic stasis skin abnormalities and recurrent cellulitis of the legs CONSULTANTS: jeromy Guzman and Aidan of infectious disease HOSPITAL COURSE SUMMARY: This patient who has root numerous recurrent episodes of cellulitis of the legs with chronic edema of the legs has been taking doxycycline as a preventive antibiotic home. However he comes to the hospital at this time with significant episode of cellulitis requiring admission with IV antibiotics. Blood cultures did not grow any abnormality bugs and his clinical syndrome responded quite nicely to IV antibiotics here in the hospital. There has been no evidence of abscess, necrosis, open wounds, or anything else requiring wound care surgery. At this time the patient is stable for discharge to home. I reviewed the case in detail with Dr. Vince Bermudez today. He would like to see the patient back in 7-10 days in clinic and will treat with oral antibiotics at home at this time. He will be reviewing for a likely change in the could long- term prophylactic antibiotic prescribed. PENDING TEST RESULTS: None MEDICATION CHANGES: Addition of Keflex 500 mg four times daily for 10 days FOLLOW-UP PLAN: With Dr. Bermudez at [facility] in 7-10 days Greater than 35 minutes bedside and care coordination time today
== END 2017-01-22 15:55 | disposition home or self-care (01) | DRG 603 ==
LOC: F1N 15:01
PROVIDERS: ADMIT Internal Medicine; ATTEND Internal Medicine
DX: L03.115 Cellulitis of right lower limb (principal); R60.0 Localized edema; I10 Essential (primary) hypertension; E78.5 Hyperlipidemia, unspecified; M54.9 Dorsalgia, unspecified; G89.29 Other chronic pain; G25.0 Essential tremor; F31.9 Bipolar disorder, unspecified; G43.909 Migraine, unspecified, not intractable, without status migrainosus; E66.9 Obesity, unspecified; Z68.41 Body mass index [BMI] 40.0-44.9, adult; Z87.820 Personal history of traumatic brain injury; Z86.14 Personal history of Methicillin resistant Staphylococcus aureus infection; Z79.891 Long term (current) use of opiate analgesic; Z79.2 Long term (current) use of antibiotics; Z88.2 Allergy status to sulfonamides
CPT/HCPCS: J0690; J1650; J1940

== ENCOUNTER 2017-12-22 09:30 | Observation (INO) | payer OTHER ==
--- NOTE | 2017-12-22 10:29 | EDPHY ---
H & P Stated Complaint: right ankle red/swollen starting yesterday, hx cellulitis Time Seen by Provider: 12/22/17 09:58 HPI/ROS: CHIEF COMPLAINT: Right lower extremity cellulitis HISTORY OF PRESENT ILLNESS: 62-year-old male with lymphedema and recurrent cellulitis presents with right lower extremity cellulitis. 1 week ago he sustained an abrasion to the anterior aspect of his right lower leg when he bumped into his ortho tech. Onset of erythema warmth and tenderness of the right lower extremity yesterday. He called infectious disease, who placed him on Augmentin. He has had 2 doses of Augmentin. This morning he awoke with increased redness and moderate pain of his right leg. No fever. Admitted for lower extremity cellulitis in December 2016, on Keflex prophylaxis daily x1 year. REVIEW OF SYSTEMS: complete 10 point ROS negative except at noted in the HPI - Personal History Current Tetanus/Diphtheria Vaccine: Yes Current Tetanus Diphtheria and Acellular Pertussis (TDAP): Yes Tetanus Vaccine Date: < 10 years - Medical/Surgical History Hx Asthma: No Hx Chronic Respiratory Disease: No Hx Diabetes: No Hx Cardiac Disease: No Hx Renal Disease: No Hx Cirrhosis: No Hx Alcoholism: No Hx HIV/AIDS: No Hx Splenectomy or Spleen Trauma: No Other PMH: MIGRAINES, TBI, htn, high cholesterol, chronic back pain, cpap. staph infection on legs 2011. BIPOLAR, KNEE PAIN, CONCUSSION, VERTIGO, BLE Cellulitis. lymphedema - Social History Smoking Status: Never smoked - Physical Exam Exam: General Appearance: Alert, pleasant Eyes: Pupils equal and round, no conjunctival pallor ENT, Mouth: Mucous membranes moist Neck: Normal inspection Respiratory: Lungs are clear to auscultation Cardiovascular: Regular rate and rhythm Gastrointestinal: Abdomen is soft and nontender Neurological: A&O, nonfocal, normal gait Skin: Warm and dry Extremities: Right lower extremity-erythema warmth and tenderness extending from the mid lower leg to the foot, there is a scabbed over abrasion on the anterior aspect of the mid leg; bilateral pedal edema Psychiatric: Mood and affect normal Constitutional: Initial Vital Signs Temperature (C) 37.0 C 12/22/17 09:36 Heart Rate 76 12/22/17 09:36 Respiratory Rate 18 12/22/17 09:36 Blood Pressure 129/77 H 12/22/17 09:36 O2 Sat (%) 90 L 12/22/17 09:36 O2 Delivery Mode Room Air Allergies/Adverse Reactions: Sulfa (Sulfonamide Antibiotics) Allergy (Mild, Verified 12/22/17 09:33) RASH/RED SKIN YELLOWJACKETS Allergy (Severe, Uncoded 01/03/14 23:30) INFLAMMED AND SWOLLEN ENVIRONMENTAL Allergy (Mild, Uncoded 01/03/14 23:30) NASAL CONGESTION Home Medications: Medication Instructions Recorded Butterbur Root Extract [Petadolex 75 mg PO TID 04/08/16 75] Fluticasone Nasal [Flonase Nasal 4 sprays NASAL HS 04/08/16 [place]] HYDROmorphone HCL [Dilaudid] 8 mg PO TID 04/08/16 Methocarbamol [Robaxin 750 mg (*)] 750 mg PO TID 04/08/16 OLANZapine [ZyPREXA 2.5 mg (*)] 2.5 mg PO 04/08/16 Sertraline HCl [Zoloft 50mg (*)] 150 mg PO DAILY 04/08/16 Chondroitin Sulfate A Sodium 1,200 mg PO DAILY 04/27/16 [Optiflex-C] Gluc Dee/Chondro Dee A/Vit C/Mn 1 each PO BID 04/27/16 [Glucosamine 1,500 Complex Cap] Aspirin [Aspirin 81mg (*)] 81 mg PO DAILY 01/20/17 Brimonidine/Timolol [Combigan (*)] 1 drops EACHEYE HS 01/20/17 Cholecalciferol Vit D3 [Vitamin D3 2,000 units PO BID 01/20/17 (*)] Diclofenac 35 35 mg PO TID 01/20/17 Docusate Sodium [Colace 100 MG (*)] 200 mg PO HS 01/20/17 Feosol 28 mg PO DAILY 01/20/17 Fish Oil/Dha/Epa [Fish Oil 1,200 2 cap PO BID 01/20/17 mg Fish Oil] Herbals/Supplements -Info Only 1 ea PO DAILY 01/20/17 Lansoprazole [Prevacid] 30 mg PO DAILY 01/20/17 Magnesium Oxide [Magnesium] 500 mg PO HS 01/20/17 Melatonin [Melatonin 3 MG (*)] 3 mg PO HS 01/20/17 OLANZapine [ZyPREXA 2.5 mg (*)] 10 mg PO HS 01/20/17 Travoprost Z 0.004% [Travatan Z 1 drops EACHEYE HS 01/20/17 0.004% (*)] Cephalexin [Keflex (*)] 500 mg PO DAILY 12/22/17 HYDROmorphone HCL [Hydromorphone 16 mg PO Q12 12/22/17 ER] Lisdexamfetamine Dimesylate 60 mg PO DAILY 12/22/17 [Vyvanse] Meloxicam [Mobic 15 mg] 15 mg PO DAILY 12/22/17 Metformin HCl [Metformin 1000 mg] 1,000 mg PO BIDMEAL 12/22/17 Testosterone IM [Testosterone 50 mg IM Q14D 12/22/17 100mg/ml IM inj (*)] Medical Decision Making ED Course/Re-evaluation: This patient presents with recurrent cellulitis. Does not meet SIRS criteria. No h/o trauma. I do not suspect fx or DVT. Dr. Valentin consulted, suggests IV Ancef 2 g IV. The hospitalist service was consulted for admission. Differential Diagnosis: includes though not limited to DVT, osteomyelitis, fracture, abscess - Data Points Laboratory Results: Laboratory Results 12/22/17 10:23 12/22/17 10:23 Medications Given: Brimonidine/Timolol (Combigan) 1 drops EACHEYE [facility] Stop: 06/20/18 20:59 Last Admin: 12/22/17 22:32 Dose: 1 drops Cholecalciferol (Vitamin D) 2,000 units PO BID [facility] Stop: 06/20/18 20:59 Last Admin: 12/22/17 22:29 Dose: 2,000 units Docusate Sodium (Colace) 200 mg PO [facility] Stop: 06/20/18 20:59 Last Admin: 12/22/17 22:29 Dose: 200 mg Fluticasone Propionate (Flonase Nasal [place]) 4 sprays [place] [facility] Stop: 06/20/18 20:59 Last Admin: 12/22/17 22:33 Dose: 4 sprays Hydromorphone HCl (Dilaudid) 8 mg PO TID [facility] Stop: 01/01/18 15:59 Last Admin: 12/22/17 22:30 Dose: 8 mg Cefazolin Sodium/Dextrose (Ancef 2 Gm) 100 mls @ 200 mls/hr IV Q8HRS [facility] PRN Reason: Protocol Stop: 01/21/18 13:59 Last Admin: 12/23/17 05:57 Dose: 100 mls Melatonin (Melatonin) 3 mg PO [facility] Stop: 06/20/18 20:59 Last Admin: 12/22/17 22:30 Dose: 3 mg Methocarbamol (Robaxin) 750 mg PO TID [facility] Stop: 06/20/18 15:59 Last Admin: 12/22/17 22:30 Dose: 750 mg Miscellaneous Medication (Hydromorphone Hcl [Hydromorphone Er]) 16 mg PO Q12 [facility] Stop: 06/20/18 20:59 Last Admin: 12/22/17 22:28 Dose: 16 mg Olanzapine (Olanzapine) 10 mg PO [facility] Stop: 06/20/18 20:59 Last Admin: 12/22/17 23:10 Dose: 10 mg Travoprost (Travatan Z 0.004%) 1 drops EACHEYE [facility] Stop: 06/20/18 20:59 Last Admin: 12/22/17 22:31 Dose: 1 drop Discontinued Medications Cefazolin Sodium/Dextrose (Ancef 2 Gm) 100 mls @ 200 mls/hr IV EDNOW ONE PRN Reason: Protocol Stop: 12/22/17 11:00 Last Admin: 12/22/17 10:51 Dose: 100 mls Departure - Departure Disposition: [facility] Inpatient Acute Clinical Impression: Cellulitis Qualifiers: Site of cellulitis: extremity Site of cellulitis of extremity: lower extremity Laterality: right Qualified Code(s): L03.115 - Cellulitis of right lower limb Condition: Fair
[2017-12-22] MEDS ORDERED: ceFAZolin 2 GM/DEXTROSE 100 ML IV ONE (10:31)
[2017-12-22 10:44] LABS: PLATELET COUNT 179 10^3/uL (150-400)
[2017-12-22] MEDS ORDERED: CEFAZOLIN 1 GM/DEXTROSE/50 ML BAG IV ONE (10:48)
[2017-12-22] MEDS ORDERED: ONDANSETRON 4 MG/2 ML VIAL IVP PRN (11:45)
[2017-12-22] MEDS ORDERED: ACETAMINOPHEN 325 MG TAB PO PRN (11:45)
[2017-12-22] MEDS ORDERED: ONDANSETRON DISINTEGRATING 4 MG TAB PO PRN (11:45)
[2017-12-22] MEDS ORDERED: oxyCODONE IR 5 MG TAB PO PRN (12:09)
[2017-12-22] MEDS: ceFAZolin 2 GM/DEXTROSE 100 ML IV SCH ×2 (13:21→22:28)
--- NOTE | 2017-12-22 14:05 | GCON ---
[f rep st] CONSULTATION INFECTIOUS DISEASE CONSULTATION DATE OF CONSULTATION: 12/22/2017 REASON FOR CONSULTATION: Recurrent right lower extremity cellulitis. HISTORY OF PRESENT ILLNESS: A 62-year-old male, who has been seen by the ID service for multiple years and is managed on chronic Keflex once daily to prevent recurrence of cellulitis, who has not had an episode of cellulitis since 01/20/2017, whose current problems date back to approximately 1 week ago when he bumped his mancilla on the spacer type bar and segment. He had no otherwise issues with this injury until 1 day prior, where he developed rapid onset of erythema and pain of his right lower extremity. He called our office 7:27 in the p.m. and we started him on Augmentin, but his symptoms progressed, and he presented to the emergency room today. He also describes some associated symptoms of malaise but no documented fevers. The patient states that after 1 dose of IV antibiotics, his erythema is less intense. PAST MEDICAL HISTORY: 1. Multiple episodes of recurrent cellulitis of the lower extremity, last episode in August of 2016. Prior to that, November of 2015, he previously had MSSA isolated from his nares and decolonization was attempted in the past. He previously was maintained on doxycycline 100 mg daily, but this was changed to Keflex following his episode in December. 2. 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 3. Traumatic brain injury complicated by intracranial hemorrhage in 1988. 4. Migraines. 5. Essential tremor. 6. Obstructive sleep apnea on CPAP. 7. Chronic low back pain. 8. Dyslipidemia. 9. Obesity. 10. Bipolar disorder. 11. Hypertension. SOCIAL HISTORY: The patient denies any unusual exposure other than what was described. He is , has 3 children. 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 No recent travel. Tdap was in 2009. FAMILY HISTORY: Reviewed and noncontributory. ALLERGIES: Sulfa causes a rash. MEDICATIONS: Ancef 2 g IV q. 8, Tylenol, Zofran, oxycodone, meloxicam 7.5 mg, Prevacid 30 mg daily, Robaxin 75 mg, Zoloft, metformin 100 mg twice daily, Flonase nasal spray, vitamin D3, aspirin, Combigan, testosterone IM every 14 days, Dilaudid 8 mg 3 times daily, Dilaudid extended release 16 mg twice daily, Vyvanse 60 mg daily. REVIEW OF SYSTEMS: A complete 10-point review of systems was performed and is negative except as mentioned in HPI. Patient reports a 20 pound weight loss due to dietary changes. PHYSICAL EXAM: VITAL SIGNS: Blood pressure 129/56, heart rate 65, respiratory rate 18, saturation 95% on 2 L. He was is 90% on room air, temperature 36.6. He has been afebrile. GENERAL: This is a nontoxic-appearing male, sitting up in a chair, in no acute distress. HEENT: Fair dentition, moist mucous membranes. No oral ulcerations or exudate. NECK: Supple. CARDIOVASCULAR: Regular rate with a 2/6 systolic murmur, loudest at the left upper sternal border. CHEST: Clear to auscultation bilaterally. ABDOMEN: Obese, soft, nontender. EXTREMITIES: Right lower extremity with erythema in the distal right calf, circumferential about to the mid mancilla. Also some mild erythema on the dorsum of his foot, also associated warmth. No crepitus. Pain was not out of proportion to exam. Range of motion of the ankle was intact. Pulses were 1 + bilateral in the dorsalis pedis position. Patient with significant cracks in his toes with hyperkeratotic skin and long toenails. NEUROLOGIC: He is alert and oriented x4, moving all 4 extremities equally. He had fluent speech. LABORATORY: White count 8.5, hematocrit 42; platelets of 179, 67% neutrophils, 18% lymphocytes. Lactic acid 0.9. Creatinine 0.9. Blood cultures were collected 12/22/2017 and are pending. ASSESSMENT AND PLAN: 62-year-old male with multiple medical problems, who presents with a recurrent bout of cellulitis while on suppressive once daily Keflex. No history of MRSA, just MSSA. Do not think recurrence due to resistance to 1st generation cephalosporin. Suspect portal of entry is related to the trauma on his distal mancilla that occurred 1 week ago. The patient is elevating his leg but other contributing factors including lack of focused washings of the lower extremities nor apply lotion. The patient also has poor foot hygiene. RECOMMENDATIONS: 1. High-dose cefazolin 2g IV q8h due to patient's weight of 127 kg. 2. Elevation of his right lower extremity. 3. As an outpatient, would recommend initiating improved skin care, specifically that hot water can worsen dry skin, mild cleansers recommended such as Dove, and would apply moisturizer daily following a showers, specifically thicker, greasier product more effective for maintaining skin moisture. 4. Would also recommend [facility] consultation as an outpatient to improve foot hygiene. We will continue to follow patient on a daily basis. Thank you for the consult. /[id number]/MODL MTDD
--- NOTE | 2017-12-22 15:39 | PDGENHP ---
History and Physical - Chief Complaint my leg is red - History of Present Illness Mr Willett is a 62yo M with a history of recurrent leg cellulitis on suppressive antibiotics as outpatient who presents with right lower leg redness, swelling and pain. Bumped his right mancilla against enterprise analyst about a week ago. Noticed worsening redness, swelling and warmth over last few days. He called his outpatient ID office yesterday and they prescribed augmentin. He took one dose last night however upon awakening this morning noted that he had increased pain and symptoms consistent with prior episodes of cellulitis so he came to the ED. He denies any fevers, chills, rigors, animal scratches or other exposures to his leg. In the ED, his exam was consistent with cellulitis and given his failure of outpatient antibiotics, he was admitted for IV antibiotics. History Information - Allergies/Home Medication List Allergies/Adverse Reactions: Sulfa (Sulfonamide Antibiotics) Allergy (Mild, Verified 12/22/17 09:33) RASH/RED SKIN YELLOWJACKETS Allergy (Severe, Uncoded 01/03/14 23:30) INFLAMMED AND SWOLLEN ENVIRONMENTAL Allergy (Mild, Uncoded 01/03/14 23:30) NASAL CONGESTION Home Medications: Butterbur Root Extract [Petadolex 75] 75 mg PO TID 04/08/16 [Last Taken 01/20/17 ] Fluticasone Nasal [Flonase Nasal [place]] 4 sprays NASAL HS 04/08/16 [Last Taken 01/19/17] HYDROmorphone HCL [Dilaudid] 8 mg PO TID 04/08/16 [Last Taken 12/21/17] Methocarbamol [Robaxin 750 mg (*)] 750 mg PO TID 04/08/16 [Last Taken 01/20/17] OLANZapine [ZyPREXA 2.5 mg (*)] 2.5 mg PO 04/08/16 [Last Taken 01/20/17] Sertraline HCl [Zoloft 50mg (*)] 150 mg PO DAILY 04/08/16 [Last Taken 01/20/17] Chondroitin Sulfate A Sodium [Optiflex-C] 1,200 mg PO DAILY 04/27/16 [Last Taken 01/20/17] Gluc Dee/Chondro Dee A/Vit C/Mn [Glucosamine 1,500 Complex Cap] 1 each PO BID 06/12 [Last Taken 01/20/17] Aspirin [Aspirin 81mg (*)] 81 mg PO DAILY 01/20/17 [Last Taken 01/20/17] Brimonidine/Timolol [Combigan (*)] 1 drops EACHEYE HS 01/20/17 [Last Taken 01/19] Cholecalciferol Vit D3 [Vitamin D3 (*)] 2,000 units PO BID 01/20/17 [Last Taken 01/20/17] Diclofenac 35 35 mg PO TID 01/20/17 [Last Taken 01/20/17] Docusate Sodium [Colace 100 MG (*)] 200 mg PO HS 01/20/17 [Last Taken 01/19/17] Feosol 28 mg PO DAILY 01/20/17 [Last Taken 01/20/17] Fish Oil/Dha/Epa [Fish Oil 1,200 mg Fish Oil] 2 cap PO BID 01/20/17 [Last Taken 01/20/17] Herbals/Supplements -Info Only 1 ea PO DAILY 01/20/17 [Last Taken Unknown] Lansoprazole [Prevacid] 30 mg PO DAILY 01/20/17 [Last Taken 01/20/17] Magnesium Oxide [Magnesium] 500 mg PO HS 01/20/17 [Last Taken 01/19/17] Melatonin [Melatonin 3 MG (*)] 3 mg PO HS 01/20/17 [Last Taken 01/19/17] OLANZapine [ZyPREXA 2.5 mg (*)] 10 mg PO HS 01/20/17 [Last Taken 01/19/17] Travoprost Z 0.004% [Travatan Z 0.004% (*)] 1 drops EACHEYE HS 01/20/17 [Last Taken 01/19/17] Cephalexin [Keflex (*)] 500 mg PO DAILY 12/22/17 [Last Taken 12/21/17] HYDROmorphone HCL [Hydromorphone ER] 16 mg PO Q12 12/22/17 [Last Taken 12/21/17] Lisdexamfetamine Dimesylate [Vyvanse] 60 mg PO DAILY 12/22/17 [Last Taken ] Meloxicam [Mobic 15 mg] 15 mg PO DAILY 12/22/17 [Last Taken 12/21/17] Metformin HCl [Metformin 1000 mg] 1,000 mg PO BIDMEAL 12/22/17 [Last Taken 12/21] Testosterone IM [Testosterone 100mg/ml IM inj (*)] 50 mg IM Q14D 12/22/17 [Last Taken 12/06/17] I have personally reviewed and updated: family history, medical history, social history, surgical history - Past Medical History Additional medical history: multiple episodes of lower extremity cellulitis ( last 12/2016) on suppressive cephalexin, R wrist MSSA septic arthritis, TBI, migraines, essential tremor, VELIA on CPAP, chronic low back pain on chronic opioid therapy, bipolar disorder, HTN - Surgical History Additional surgical history: multiple orthopedic procedures, no abdominal surgeries - Family History Additional family history: Reviewed and noncontributory. 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 Review of Systems Review of Systems: ROS: 10pt was reviewed & negative except for what was stated in HPI & below Constitutional: Denies: chills, diaphoresis, fever EENMT: Reports: no symptoms Cardiac: Reports: no symptoms Respiratory: Reports: no symptoms Gastrointestinal: Reports: no symptoms Genitourinary: Reports: no symptoms Muscolosketal: Reports: back pain. Denies: joint swelling, muscle pain Skin: Reports: change in color, other (redness, warmth, and swelling of right mancilla) Neurological: Reports: no symptoms Hematologic/Lymphatic: Reports: no symptoms Immunologic/Allergy: Reports: no symptoms Physical Exam Physical Exam: Temp Pulse Resp BP Pulse Ox 36.6 C 65 18 129/56 H 95 12/22/17 12:23 12/22/17 12:23 12/22/17 12:23 12/22/17 12:23 12/22/17 12:23 O2 (L/minute) 2 Constitutional: no apparent distress, appears nourished, not in pain Eyes: PERRL, anicteric sclera, EOMI Ears, Nose, Mouth, Throat: moist mucous membranes, hearing normal, ears appear normal, no oral mucosal ulcers Cardiovascular: regular rate and rhythym, no murmur, rub, or gallop, No edema Respiratory: no respiratory distress, no rales or rhonchi, clear to auscultation Gastrointestinal: normoactive bowel sounds, soft, non-tender abdomen, no palpable masses Genitourinary: no bladder fullness, no bladder tenderness Skin: other (right mancilla with erythema extending almost circumferentially, warmth , edema. small ulcerated lesion at distal right mancilla) Musculoskeletal: full muscle strength, no muscle tenderness, normal joint ROM, no joint effusions Neurologic: AAOx3, sensation intact bilaterally, CN II-XII Intact, No weakness Psychiatric: interacting appropriately, not anxious, not encephalopathic, thought process linear Lab Data & Imaging Review 12/22/17 10:23 12/22/17 10:23 WBC 8.55 10^3/uL (3.80-9.50) 12/22/17 10:23 RBC 4.69 10^6/uL (4.40-6.38) 12/22/17 10:23 Hgb 14.0 g/dL (13.7-17.5) 12/22/17 10:23 Hct 42.2 % (40.0-51.0) 12/22/17 10:23 MCV 90.0 fL (81.5-99.8) 12/22/17 10:23 MCH 29.9 pg (27.9-34.1) 12/22/17 10:23 MCHC 33.2 g/dL (32.4-36.7) 12/22/17 10:23 RDW 13.3 % (11.5-15.2) 12/22/17 10:23 Plt Count 179 10^3/uL (150-400) 12/22/17 10:23 MPV 10.8 fL (8.7-11.7) 12/22/17 10:23 Neut % (Auto) 67.1 % (39.3-74.2) 12/22/17 10:23 Lymph % (Auto) 18.4 % (15.0-45.0) 12/22/17 10:23 [place] % (Auto) 9.9 % (4.5-13.0) 12/22/17 10:23 Eos % (Auto) 3.7 % (0.6-7.6) 12/22/17 10:23 Baso % (Auto) 0.5 % (0.3-1.7) 12/22/17 10:23 Nucleat RBC Rel Count 0.0 % (0.0-0.2) 12/22/17 10:23 Absolute Neuts (auto) 5.74 10^3/uL (1.70-6.50) 12/22/17 10:23 Absolute Lymphs (auto) 1.57 10^3/uL (1.00-3.00) 12/22/17 10:23 Absolute Monos (auto) 0.85 10^3/uL (0.30-0.80) H 12/22/17 10:23 Absolute Eos (auto) 0.32 10^3/uL (0.03-0.40) 12/22/17 10:23 Absolute Basos (auto) 0.04 10^3/uL (0.02-0.10) 12/22/17 10:23 Absolute Nucleated RBC 0.00 10^3/uL (0-0.01) 12/22/17 10:23 Immature Gran % 0.4 % (0.0-1.1) 12/22/17 10:23 Immature Gran # 0.03 10^3/uL (0.00-0.10) 12/22/17 10:23 VBG Lactic Acid 0.9 mmol/L (0.7-2.1) 12/22/17 10:23 Sodium 139 mEq/L (135-145) 12/22/17 10:23 Potassium 4.1 mEq/L (3.3-5.0) 12/22/17 10:23 Chloride 104 mEq/L (97-110) 12/22/17 10:23 Carbon Dioxide 28 mEq/l (22-31) 12/22/17 10:23 Anion Gap 7 mEq/L (8-16) L 12/22/17 10:23 BUN 16 mg/dL (7-23) 12/22/17 10:23 Creatinine 0.9 mg/dL (0.7-1.3) 12/22/17 10:23 Estimated GFR > 60 12/22/17 10:23 Glucose 112 mg/dL (70-100) H 12/22/17 10:23 Calcium 9.2 mg/dL (8.5-10.4) 12/22/17 10:23 Assessment & Plan Assessment: Mr Willett is a 62yo M with a history of multiple episodes of lower extremity cellulitis on suppressive cephalexin as outpatient who presents with redness, swelling, and warmth of RLE consistent with prior episodes of cellulitis. Plan: 1. RLE non-purulent cellulitis: Recurrent issue but new episode, last episode 2016. Likely precipitated by trauma to area. He is not septic. ID has been consulted. Will treat with IV cefazolin and recommend elevating RLE. Blood cultures have been drawn. ID recommends improved hygiene and podiatry consult as outpatient. I have a low suspicion for DVT but would consider venous ultrasound if symptoms not improving. 2. Chronic low back pain with opioid dependence: Will continue his home regimen of IR and ER dilaudid. 3. VELIA: Patient brought in his own CPAP machine and plans to use this while inpatient. 4. TBI with bipolar disorder: He is interacting appropriately and appears to be at his baseline. Will continue his home olanzapine and sertraline. VTE ppx: low risk, SCDs on unaffected leg Diet: regular Code: DNR per discussion with patient Disposition: admit for management of recurrent cellulitis with IV antibiotics.
[2017-12-22] MEDS: HYDROmorphONE/DILAUDID 4 MG TAB PO SCH ×2 (15:57→22:30)
[2017-12-22] MEDS: METHOCARBAMOL 750 MG TAB PO SCH ×2 (15:58→22:30)
[2017-12-22] MEDS ORDERED: DOCUSATE SODIUM 100 MG CAP PO SCH (21:00)
[2017-12-22] MEDS ORDERED: OLANZapine 10 MG TAB PO SCH (21:00)
[2017-12-22] MEDS ORDERED: FLUTICASONE NASAL 120 SPRAYS/16 GM MDI EACHNARE SCH (21:00)
[2017-12-22] MEDS ORDERED: BRIMONIDINE/TIMOLOL 5 ML OPHT.BTL EACHEYE SCH (21:00)
[2017-12-22] MEDS ORDERED: TRAVOPROST Z 0.004% 2.5 ML OPHT.BTL EACHEYE SCH (21:00)
[2017-12-22] MEDS ORDERED: OLANZapine 2.5 MG TAB PO SCH (21:00)
[2017-12-22] MEDS ORDERED: MELATONIN 3 MG TAB PO SCH (21:00)
[2017-12-22] MEDS: HYDROMORPHONE 16 MG PO SCH (22:28)
[2017-12-22] MEDS: CHOLECALCIFEROL VIT D3 1,000 UNITS TAB PO SCH (22:29)
[2017-12-23] MEDS: ceFAZolin 2 GM/DEXTROSE 100 ML IV SCH (05:57)
[2017-12-23] MEDS ORDERED: Lisdexamfetamine Dimesylate [Vyvanse] 60 MG PO SCH (09:00)
[2017-12-23] MEDS ORDERED: SERTRALINE HCL 50 MG TAB PO SCH (09:00)
[2017-12-23] MEDS ORDERED: ASPIRIN 81 MG CHEWABLE TAB PO SCH (09:00)
[2017-12-23] MEDS ORDERED: LANSOPRAZOLE SUSP 3 MG/ML UDSYR (Peds) PO SCH (09:00)
[2017-12-23] MEDS ORDERED: PANTOPRAZOLE SODIUM 40 MG TAB PO SCH (09:00)
[2017-12-23 09:12] VITALS: BP 156/75
[2017-12-23] MEDS: CHOLECALCIFEROL VIT D3 1,000 UNITS TAB PO SCH (09:38)
[2017-12-23] MEDS: HYDROmorphONE/DILAUDID 4 MG TAB PO SCH (09:38)
[2017-12-23] MEDS: OLANZapine 2.5 MG TAB PO SCH ×2 (09:38→13:00)
[2017-12-23] MEDS: METHOCARBAMOL 750 MG TAB PO SCH (09:39)
--- NOTE | 2017-12-23 09:46 | ASMTCMCOM ---
CM Note CM Note Notes: 62yr old male admitted for recurring cellulitis of the R lower leg. He has a Hx of R wrist MSSA, septic arthritis, TBI, Migraines, Tremor, VELIA-cpap, HTN, Chronic back pain-narc dependent, Bipolar. Patient lives with his and 3 children. DNR status. Being treated with IV ABX. CM to follow for discharge needs. Date Signed: 12/23/2017 09:45 AM Electronically Signed By:Geraldine Hudson LCSW
[2017-12-23] MEDS: HYDROMORPHONE 16 MG PO SCH (09:56)
--- NOTE | 2017-12-23 10:54 | PCMIDPN ---
Assessment/Plan: 62-year-old male with history of recurrent lower extremity cellulitis now with RLE cellulitis: significant improvement overnight in intensity of erythema and swelling --couple more days IV at infusion center as outpatient, notified case management --admin via PIV --continue elevation --transition to ceftriaxone for ease of administration as an outpatient --follow-up in ID Clinic is in discharge tab Medications Cefazolin 2 g IV Q 8, # 1 Subjective: Patient is feeling well feels he can go home on IV antibiotics. Still some mild pain on the lower anterior mancilla Objective: Vital Signs Temp Pulse Resp BP Pulse Ox 36.7 C 68 14 156/75 H 95 12/23/17 08:00 12/23/17 08:00 12/23/17 08:00 12/23/17 08:00 12/23/17 08:00 Laboratory Results 12/23/17 05:00 12/22/17 12/23/17 12/24/17 05:59 05:59 05:59 Intake Total 1350 400 Balance 1350 400 General: Well-appearing, breathing easy HEENT: Moist mucous membranes no oral ulcerations or exudates Cardiovascular regular rate and rhythm with a 2/6 systolic murmur Extremity right lower extremity with less swelling reflected in skin wrinkling, erythema with recession more localized to the ankle and just above the ankle, still mild tenderness over that area and warmth. PIV right forearm C/D/i Skin: No rashes - Time Spent With Patient Time Spent with Patient: greater than 25 minutes Time Spent with Patient: Greater than 25 minutes spent on this patients care, greater than 50% of time spent counseling, educating, and coordinating care regarding the above mentioned plan. ICD10 Worksheet Patient Problems: Problems Problem Status Onset Cellulitis Acute Cellulitis of leg Active Ataxia Acute C. difficile diarrhea Acute 02/06/15 Cellulitis of right leg Acute Concussion Acute Headache Acute Hemiparesis Acute Migraine Acute Mood disorder Acute Spell of transient neurologic symptoms Acute Wrist joint infection Acute
--- NOTE | 2017-12-23 10:54 | PDIAF ---
- Diagnosis Diagnosis: RLE cellulitis Code Status: Do Not Resuscitate - Medication Management Discharge Medications: Medications to Continue on Transfer Butterbur Root Extract [Petadolex 75] 75 mg PO TID 04/08/16 [Last Taken 01/20/17 ] Fluticasone Nasal [Flonase Nasal [place]] 4 sprays NASAL HS 04/08/16 [Last Taken 01/19/17] HYDROmorphone HCL [Dilaudid] 8 mg PO TID 04/08/16 [Last Taken 12/21/17] Methocarbamol [Robaxin 750 mg (*)] 750 mg PO TID 04/08/16 [Last Taken 01/20/17] OLANZapine [ZyPREXA 2.5 mg (*)] 2.5 mg PO 04/08/16 [Last Taken 01/20/17] Sertraline HCl [Zoloft 50mg (*)] 150 mg PO DAILY 04/08/16 [Last Taken 01/20/17] Chondroitin Sulfate A Sodium [Optiflex-C] 1,200 mg PO DAILY 04/27/16 [Last Taken 01/20/17] Gluc Dee/Chondro Dee A/Vit C/Mn [Glucosamine 1,500 Complex Cap] 1 each PO BID 06/12 [Last Taken 01/20/17] Aspirin [Aspirin 81mg (*)] 81 mg PO DAILY 01/20/17 [Last Taken 01/20/17] Brimonidine/Timolol [Combigan (*)] 1 drops EACHEYE HS 01/20/17 [Last Taken 01/19] Cholecalciferol Vit D3 [Vitamin D3 (*)] 2,000 units PO BID 01/20/17 [Last Taken 01/20/17] Diclofenac 35 35 mg PO TID 01/20/17 [Last Taken 01/20/17] Docusate Sodium [Colace 100 MG (*)] 200 mg PO HS 01/20/17 [Last Taken 01/19/17] Feosol 28 mg PO DAILY 01/20/17 [Last Taken 01/20/17] Fish Oil/Dha/Epa [Fish Oil 1,200 mg Fish Oil] 2 cap PO BID 01/20/17 [Last Taken 01/20/17] Herbals/Supplements -Info Only 1 ea PO DAILY 01/20/17 [Last Taken Unknown] Lansoprazole [Prevacid] 30 mg PO DAILY 01/20/17 [Last Taken 01/20/17] Magnesium Oxide [Magnesium] 500 mg PO HS 01/20/17 [Last Taken 01/19/17] Melatonin [Melatonin 3 MG (*)] 3 mg PO HS 01/20/17 [Last Taken 01/19/17] OLANZapine [ZyPREXA 2.5 mg (*)] 10 mg PO HS 01/20/17 [Last Taken 01/19/17] Travoprost Z 0.004% [Travatan Z 0.004% (*)] 1 drops EACHEYE HS 01/20/17 [Last Taken 01/19/17] Cephalexin [Keflex (*)] 500 mg PO DAILY 12/22/17 [Last Taken 12/21/17] HYDROmorphone HCL [Hydromorphone ER] 16 mg PO Q12 12/22/17 [Last Taken 12/21/17] Lisdexamfetamine Dimesylate [Vyvanse] 60 mg PO DAILY 12/22/17 [Last Taken ] Meloxicam [Mobic 15 mg] 15 mg PO DAILY 12/22/17 [Last Taken 12/21/17] Metformin HCl [Metformin 1000 mg] 1,000 mg PO BIDMEAL 12/22/17 [Last Taken 12/21] Testosterone IM [Testosterone 100mg/ml IM inj (*)] 50 mg IM Q14D 12/22/17 [Last Taken 12/06/17] Associate Professor Of Violin Antibiotics: ceftriaxone 2gm IV daily Longterm Antibiotic Stop Date: 11/28/17 Discharge Medications: Refer to the Discharge Home Medication list for PRN reason. PICC Care - Routine: N/A (PIV change per protocol) - Orders Isolation Type: None - Labs/Radiology CBC w/diff Date: 12/25/17 CMP Date: 12/25/17 Call or Fax Lab and Imaging Results to: Makenna Gmoez [id number] - Follow Up Care Current Providers and Referrals: Eric Mensah MD [Primary Care Provider] - As per Instructions Makenna Gomez, CARLOS [Certified Nurse Practioner] - 12/26/17 1:45 pm
--- NOTE | 2017-12-23 10:55 | PDIAF ---
- Diagnosis Diagnosis: RLE cellulitis Code Status: Do Not Resuscitate - Medication Management Discharge Medications: Medications to Continue on Transfer Butterbur Root Extract [Petadolex 75] 75 mg PO TID 04/08/16 [Last Taken 01/20/17 ] Fluticasone Nasal [Flonase Nasal [place]] 4 sprays NASAL HS 04/08/16 [Last Taken 01/19/17] HYDROmorphone HCL [Dilaudid] 8 mg PO TID 04/08/16 [Last Taken 12/21/17] Methocarbamol [Robaxin 750 mg (*)] 750 mg PO TID 04/08/16 [Last Taken 01/20/17] OLANZapine [ZyPREXA 2.5 mg (*)] 2.5 mg PO 04/08/16 [Last Taken 01/20/17] Sertraline HCl [Zoloft 50mg (*)] 150 mg PO DAILY 04/08/16 [Last Taken 01/20/17] Chondroitin Sulfate A Sodium [Optiflex-C] 1,200 mg PO DAILY 04/27/16 [Last Taken 01/20/17] Gluc Dee/Chondro Dee A/Vit C/Mn [Glucosamine 1,500 Complex Cap] 1 each PO BID 06/12 [Last Taken 01/20/17] Aspirin [Aspirin 81mg (*)] 81 mg PO DAILY 01/20/17 [Last Taken 01/20/17] Brimonidine/Timolol [Combigan (*)] 1 drops EACHEYE HS 01/20/17 [Last Taken 01/19] Cholecalciferol Vit D3 [Vitamin D3 (*)] 2,000 units PO BID 01/20/17 [Last Taken 01/20/17] Diclofenac 35 35 mg PO TID 01/20/17 [Last Taken 01/20/17] Docusate Sodium [Colace 100 MG (*)] 200 mg PO HS 01/20/17 [Last Taken 01/19/17] Feosol 28 mg PO DAILY 01/20/17 [Last Taken 01/20/17] Fish Oil/Dha/Epa [Fish Oil 1,200 mg Fish Oil] 2 cap PO BID 01/20/17 [Last Taken 01/20/17] Herbals/Supplements -Info Only 1 ea PO DAILY 01/20/17 [Last Taken Unknown] Lansoprazole [Prevacid] 30 mg PO DAILY 01/20/17 [Last Taken 01/20/17] Magnesium Oxide [Magnesium] 500 mg PO HS 01/20/17 [Last Taken 01/19/17] Melatonin [Melatonin 3 MG (*)] 3 mg PO HS 01/20/17 [Last Taken 01/19/17] OLANZapine [ZyPREXA 2.5 mg (*)] 10 mg PO HS 01/20/17 [Last Taken 01/19/17] Travoprost Z 0.004% [Travatan Z 0.004% (*)] 1 drops EACHEYE HS 01/20/17 [Last Taken 01/19/17] Cephalexin [Keflex (*)] 500 mg PO DAILY 12/22/17 [Last Taken 12/21/17] HYDROmorphone HCL [Hydromorphone ER] 16 mg PO Q12 12/22/17 [Last Taken 12/21/17] Lisdexamfetamine Dimesylate [Vyvanse] 60 mg PO DAILY 12/22/17 [Last Taken ] Meloxicam [Mobic 15 mg] 15 mg PO DAILY 12/22/17 [Last Taken 12/21/17] Metformin HCl [Metformin 1000 mg] 1,000 mg PO BIDMEAL 12/22/17 [Last Taken 12/21] Testosterone IM [Testosterone 100mg/ml IM inj (*)] 50 mg IM Q14D 12/22/17 [Last Taken 12/06/17] Train Operator Antibiotics: ceftriaxone 2gm IV daily Retirement Antibiotic Stop Date: 12/26/17 Discharge Medications: Refer to the Discharge Home Medication list for PRN reason. PICC Care - Routine: N/A (PIV change per protocol) - Orders Isolation Type: None - Labs/Radiology CBC w/diff Date: 12/25/17 CMP Date: 12/25/17 Call or Fax Lab and Imaging Results to: Makenna Gomez [id number] - Follow Up Care Current Providers and Referrals: Makenna Gomez NP [Certified Nurse Practioner] - 12/26/17 1:45 pm Eric Mensah MD [Primary Care Provider] - As per Instructions
--- NOTE | 2017-12-23 11:45 | ASDISCHSUM ---
Discharge Information Plan Status:IV ABX/Infusion Medically Cleared to Leave:12/23/2017 Discharge Date:12/23/2017 CM D/C Disposition:Home, Routine, Self-Care ADT D/C Disposition: Projected Discharge Date:12/23/2017 01:00 PM Transportation at D/C:Family Discharge Delay Reason: Follow-Up Date:12/23/2017 01:00 PM Discharge Slot: Final Diagnosis:Recurrent R LL cellulitis Placement Information Patient Contact Information Contact Name:TERRANCE Relationship: Address:[address] City:[place] Alternate Phone: [facility]/Zip Code:[place] [address] Email: Financial Information Financial Class:HMO and PPO Plans Primary Plan Desc:[facility] Primary Plan Number:[id number] Secondary Plan Desc: Secondary Plan Number: Assessment Information [facility] CM Progress Note CM Note CM Note Notes: 62yr old male admitted for recurring cellulitis of the R lower leg. He has a Hx of R wrist MSSA, septic arthritis, TBI, Migraines, Tremor, VELIA-cpap, HTN, Chronic back pain-narc dependent, Bipolar. Patient lives with his and 3 children. DNR status. Being treated with IV ABX. CM to follow for discharge needs. Date Signed: 12/23/2017 09:45 AM Electronically Signed By:Geraldine Hudson LCSW LACE LACE Length of stay for Answers: 1 day current admission Acuity / Level of Answers: No Care: Did the patient have an inpatient admission? Comorbidities - select Answers: Opioid dependence all that apply / Chronic pain Other Notes: Recurrent cellulitis, H X TBI # of Emergency department Answers: 1-2 visits in the last 6 months Social determinants Answers: History of substance abuse (ETOH, street drugs, prescription drugs, etc.) Mental health diagnosis (anxiety, depression, pers onality disorders, etc.) Score: 13 Date Signed: 12/23/2017 11:43 AM Electronically Signed By:Geraldine Hudson LCSW Case Management Discharge Plan Note Case Management Discharge Discharge Order Complete? Answers: Yes Patient to Obtain Answers: Other Notes: Infusion Ctr Medications Transportation Arranged Answers: Family/Friends Transport will Pick (Date 12/23/2017 01:00 PM & Time) Family Notified Answers: Yes Notes: to transport Discharge Comments Notes: Patient has elected to come in to the Infusion Ctr for continues IV ABX. No other needs noted Date Signed: 12/23/2017 11:45 AM Electronically Signed By:Geraldine Hudson LCSW Intervention Information Intervention Type:*Incorrect Registration Date of Service:12/22/2017 04:09 PM Patient Type:Observation Staff Member:ALEK Szymanski Kerry Hours: Discipline: Severity: Comment:
--- NOTE | 2017-12-23 12:24 | PDIAF ---
- Diagnosis Diagnosis: RLE cellulitis Code Status: Do Not Resuscitate - Medication Management Discharge Medications: Medications to Continue on Transfer Butterbur Root Extract [Petadolex 75] 75 mg PO TID 04/08/16 [Last Taken 01/20/17 ] Fluticasone Nasal [Flonase Nasal [place]] 4 sprays NASAL HS 04/08/16 [Last Taken 01/19/17] HYDROmorphone HCL [Dilaudid] 8 mg PO TID 04/08/16 [Last Taken 12/21/17] Methocarbamol [Robaxin 750 mg (*)] 750 mg PO TID 04/08/16 [Last Taken 01/20/17] OLANZapine [ZyPREXA 2.5 mg (*)] 2.5 mg PO 04/08/16 [Last Taken 01/20/17] Sertraline HCl [Zoloft 50mg (*)] 150 mg PO DAILY 04/08/16 [Last Taken 01/20/17] Chondroitin Sulfate A Sodium [Optiflex-C] 1,200 mg PO DAILY 04/27/16 [Last Taken 01/20/17] Gluc Dee/Chondro Dee A/Vit C/Mn [Glucosamine 1,500 Complex Cap] 1 each PO BID 06/12 [Last Taken 01/20/17] Aspirin [Aspirin 81mg (*)] 81 mg PO DAILY 01/20/17 [Last Taken 01/20/17] Brimonidine/Timolol [Combigan (*)] 1 drops EACHEYE HS 01/20/17 [Last Taken 01/19] Cholecalciferol Vit D3 [Vitamin D3 (*)] 2,000 units PO BID 01/20/17 [Last Taken 01/20/17] Diclofenac 35 35 mg PO TID 01/20/17 [Last Taken 01/20/17] Docusate Sodium [Colace 100 MG (*)] 200 mg PO HS 01/20/17 [Last Taken 01/19/17] Feosol 28 mg PO DAILY 01/20/17 [Last Taken 01/20/17] Fish Oil/Dha/Epa [Fish Oil 1,200 mg Fish Oil] 2 cap PO BID 01/20/17 [Last Taken 01/20/17] Herbals/Supplements -Info Only 1 ea PO DAILY 01/20/17 [Last Taken Unknown] Lansoprazole [Prevacid] 30 mg PO DAILY 01/20/17 [Last Taken 01/20/17] Magnesium Oxide [Magnesium] 500 mg PO HS 01/20/17 [Last Taken 01/19/17] Melatonin [Melatonin 3 MG (*)] 3 mg PO HS 01/20/17 [Last Taken 01/19/17] OLANZapine [ZyPREXA 2.5 mg (*)] 10 mg PO HS 01/20/17 [Last Taken 01/19/17] Travoprost Z 0.004% [Travatan Z 0.004% (*)] 1 drops EACHEYE HS 01/20/17 [Last Taken 01/19/17] HYDROmorphone HCL [Hydromorphone ER] 16 mg PO Q12 12/22/17 [Last Taken 12/21/17] Lisdexamfetamine Dimesylate [VYVANSE] 60 mg PO DAILY 12/22/17 [Last Taken ] Meloxicam [Mobic 15 mg] 15 mg PO DAILY 12/22/17 [Last Taken 12/21/17] Metformin HCl [Metformin 1000 mg] 1,000 mg PO BIDMEAL 12/22/17 [Last Taken 12/21] Testosterone IM [Testosterone 100mg/ml IM inj (*)] 50 mg IM Q14D 12/22/17 [Last Taken 12/06/17] cefTRIAXone [Rocephin] 2 gm IV DAILY vial 12/23/17 [Last Taken Unknown] Penitentiary Antibiotics: ceftriaxone 2gm IV daily Operations Planner Antibiotic Stop Date: 12/26/17 Discharge Medications: Refer to the Discharge Home Medication list for PRN reason. PICC Care - Routine: N/A (PIV change per protocol) - Orders Isolation Type: None - Labs/Radiology CBC w/diff Date: 12/25/17 CMP Date: 12/25/17 Call or Fax Lab and Imaging Results to: Makenna Gomez [id number] - Follow Up Care Current Providers and Referrals: Makenna Gomez NP [Certified Nurse Practioner] - 12/26/17 1:45 pm Eric Mensah MD [Primary Care Provider] - As per Instructions
--- NOTE | 2017-12-23 16:51 | PDDCSUM ---
Discharge Summary Discharge Summary: Date of Admission: 12/22/2017 Date of Discharge: 12/23/2017 Consultants: infectious disease Procedures: none Brief Hospital Course by Diagnosis: 1. RLE non-purulent cellulitis: Recurrent issue. Precipitated by trauma to area. ID consulted. Maintained on IV antibiotics and will continue ceftriaxone at infusion center and follow up with ID in 3 days. Recommend improved hygiene and podiatry consult as outpatient. 2. Chronic low back pain with opioid dependence: Continued home regimen. 3. VELIA: Wears CPAP nightly. 4. TBI with bipolar disorder: Appropriate and compensated. Continued home olanzapine and sertraline. Tests Pending at Discharge: finalized blood cultures (currently NGTD) Items for Follow Up: 1. Follow up with ID for IV antibiotics and labs (ordered by ID) 2. Podiatry consult Medications at Discharge: Please refer to EMR for complete medication list. Changes made include addition of IV ceftriaxone and discontinuation of PO cephalexin.
== END 2017-12-23 14:52 | disposition home or self-care (01) ==
LOC: INTOOBSV 10:32 → F3E 11:20
PROVIDERS: ADMIT Internal Medicine; ATTEND Internal Medicine
DX: L03.115 Cellulitis of right lower limb (principal); M54.5 Low back pain; F11.20 Opioid dependence, uncomplicated; G47.33 Obstructive sleep apnea (adult) (pediatric); F31.9 Bipolar disorder, unspecified; Z66 Do not resuscitate
CPT/HCPCS: 96374; 99285; G0378; J0690; J0696

== ENCOUNTER 2018-06-08 16:04 | Emergency (ER) | payer OTHER ==
--- NOTE | 2018-06-08 16:41 | EDPHY ---
H & P Stated Complaint: rash,pain,and swelling RLE for 2 days Time Seen by Provider: 06/08/18 16:21 HPI/ROS: CHIEF COMPLAINT: Redness on the right leg HISTORY OF PRESENT ILLNESS: This is a 63-year-old male with history of chronic back pain, on opiates, [id number] diabetes, and history of recurrent lower extremity cellulitis who presents with concerns for cellulitis on the right lower extremity. Patient reports he was taking a shower yesterday evening and noticed that the water was causing a burning discomfort on his right chin. He took on Augmentin last night. When he woke this morning, he noted redness on the anterior aspect of the mancilla. Patient took additional dose of Augmentin. He presents at this time for further evaluation. No fevers or chills. No chest pain, shortness of breath, nausea, vomiting, diarrhea. No headache or lightheadedness. Patient was hospitalized in November 2017 for similar episode of non purulent cellulitis. Patient received IV antibiotics in hospital as well as several days of outpatient ceftriaxone. REVIEW OF SYSTEMS: A comprehensive 10 system review of systems was reviewed and is otherwise negative aside from elements mentioned in the history of present illness and medical decision making. PAST MEDICAL HISTORY: Diabetes, chronic back pain, chronic lymphadenopathy, recurrent cellulitis SOCIAL HISTORY: Nonsmoker. VITAL SIGNS Reviewed by me. GENERAL: Slightly overweight, no respiratory distress. Resting comfortably HEENT: Atraumatic. Eyes: No icterus, no injection. Mouth: moist mucous membranes. No erythema or lesions. Neck: supple with no adenopathy. LUNGS: Clear to auscultation bilaterally, no wheezes, rhonchi or rales. CARDIAC: Regular rate and rhythm, no rubs, murmurs or gallops. ABDOMEN: Soft, nontender, nondistended, bowel sounds normal. BACK: No CVA tenderness. EXTREMITIES: No trauma. Right lower extremity: Warmth and erythema across the anterior mancilla. Area of redness is approximately 20 cm by 10 cm. Distal pulses are intact. Trace edema bilaterally. NEURO: Alert and oriented, grossly nonfocal. SKIN: Warm and dry, no rash. PSYCHIATRIC: Normal mentation, no agitation. - Personal History Current Tetanus Diphtheria and Acellular Pertussis (TDAP): Yes Tetanus Vaccine Date: 2010 - Medical/Surgical History Hx Asthma: No Hx Chronic Respiratory Disease: No Hx Diabetes: Yes Hx Cardiac Disease: No Hx Renal Disease: No Hx Cirrhosis: No Hx Alcoholism: No Hx HIV/AIDS: No Hx Splenectomy or Spleen Trauma: No Other PMH: MIGRAINES, htn, high cholesterol, chronic back pain, cpap,TIA. staph infection on legs 2011. BIPOLAR, KNEE PAIN, CONCUSSION, VERTIGO, BLE Cellulitis. lymphedema - Social History Smoking Status: Never smoked Constitutional: Initial Vital Signs Temperature (C) 36.9 C 06/08/18 16:17 Heart Rate 74 06/08/18 16:17 Respiratory Rate 16 06/08/18 16:17 Blood Pressure 158/97 H 06/08/18 16:17 O2 Sat (%) 92 06/08/18 16:17 O2 Delivery Mode Room Air Allergies/Adverse Reactions: Sulfa (Sulfonamide Antibiotics) Allergy (Mild, Verified 06/09/18 12:11) RASH/RED SKIN YELLOWJACKETS Allergy (Severe, Uncoded 01/03/14 23:30) INFLAMMED AND SWOLLEN ENVIRONMENTAL Allergy (Mild, Uncoded 01/03/14 23:30) NASAL CONGESTION Home Medications: Medication Instructions Recorded Butterbur Root Extract [Petadolex 75 mg PO TID 04/08/16 75] Fluticasone Nasal [Flonase Nasal 4 sprays NASAL HS 04/08/16 [place]] HYDROmorphone HCL [Dilaudid] 8 mg PO TID 04/08/16 Methocarbamol [Robaxin 750 mg (*)] 750 mg PO TID 04/08/16 OLANZapine [ZyPREXA 2.5 mg (*)] 2.5 mg PO 04/08/16 Sertraline HCl [Zoloft 50mg (*)] 150 mg PO DAILY 04/08/16 Chondroitin Sulfate A Sodium 1,200 mg PO DAILY 04/27/16 [Optiflex-C] Gluc Dee/Chondro Dee A/Vit C/Mn 1 each PO BID 04/27/16 [Glucosamine 1,500 Complex Cap] Aspirin [Aspirin 81mg (*)] 81 mg PO DAILY 01/20/17 Brimonidine/Timolol [Combigan (*)] 1 drops EACHEYE HS 01/20/17 Cholecalciferol Vit D3 [Vitamin D3 2,000 units PO BID 01/20/17 (*)] Docusate Sodium [Colace 100 MG (*)] 200 mg PO HS 01/20/17 Feosol 28 mg PO DAILY 01/20/17 Fish Oil/Dha/Epa [Fish Oil 1,200 2 cap PO BID 01/20/17 mg Fish Oil] Lansoprazole [Prevacid] 30 mg PO DAILY 01/20/17 Magnesium Oxide [Magnesium] 500 mg PO HS 01/20/17 Melatonin [Melatonin 3 MG (*)] 3 mg PO HS 01/20/17 OLANZapine [ZyPREXA 2.5 mg (*)] 10 mg PO HS 01/20/17 Travoprost Z 0.004% [Travatan Z 1 drops EACHEYE HS 01/20/17 0.004% (*)] HYDROmorphone HCL [Hydromorphone 16 mg PO Q12 12/22/17 ER] Lisdexamfetamine Dimesylate 60 mg PO DAILY 12/22/17 [VYVANSE] Meloxicam [Mobic 15 mg] 15 mg PO DAILY 12/22/17 Metformin HCl [Metformin 1000 mg] 1,000 mg PO BIDMEAL 12/22/17 Testosterone IM [Testosterone 50 mg IM Q14D 12/22/17 100mg/ml IM inj (*)] Augmentin 875 MG TAB (*) 06/08/18 Medical Decision Making ED Course/Re-evaluation: Discussed obtaining CBC and chemistries to further evaluate for the presence of an emergency medical condition. The chemistries are normal. Glucose 93, not acidotic, lactic acid is 1.0. CBC: Patient received a g of ceftriaxone. The area of erythema was outlined on his leg. He will return to the emergency department tomorrow for an additional dose of IV ceftriaxone. At that point, provided the patient is improving, he may be safe to transition to orals. Differential Diagnosis: Differential diagnoses for the patient's symptom complex was considered including but not limited to cellulitis, septicemia, abscess, MRSA, MSSA. - Data Points Medications Given: Discontinued Medications Ceftriaxone Sodium/Dextrose (Rocephin 1 Gm (Premix)) 50 mls @ 100 mls/hr IV EDNOW ONE PRN Reason: Protocol Stop: 06/08/18 17:14 Last Admin: 06/08/18 16:58 Dose: 50 mls Point of Care Test Results: CBC CBC Collection Date 06/08/18 CBC Collection Time 14:44 WBC 8.3 RBC 5.37 HGB 16.1 HCT 47.1 PLT 224 Neut # 5.1 Neut 61.6 LYMPH # 2.4 LYMPH 28.4 Other WBC # 0.8 Other WBC 10.0 MCV 87.7 Chemistry 06/08/18 16:52 POC Sodium 142 mEq/L mEq/L (135-145) POC Potassium 3.9 mEq/L mEq/L (3.3-5.0) POC Chloride 106.0 mEq/L mEq/L (97-110) POC Total CO2 27 mEq/L mEq/L (22-31) POC BUN 18 mg/dL mg/dL (7-23) POC Creatinine 0.9 mg/dL mg/dL (0.7-1.3) POC Glucose 93 mg/dL mg/dL (70-100) POC Calcium 9.8 mg/dL mg/dL (8.5-10.4) Blood Gas/Lactic Acid-Venous 06/08/18 16:55 POC Lactic Acid Andrade 1.0 mmol/L mmol/L (0.7-2.1) Departure - Departure Disposition: Home, Routine, Self-Care Clinical Impression: Cellulitis Qualifiers: Site of cellulitis: extremity Site of cellulitis of extremity: lower extremity Laterality: right Qualified Code(s): L03.115 - Cellulitis of right lower limb Condition: Good Instructions: Cellulitis (ED) Additional Instructions: Keep the leg elevated tonight. Return to the emergency department tomorrow around noon for repeat dose of ceftriaxone. If you are improving, we may be able to transition to oral antibiotics. Return to the emergency department he have fevers or chills, vomiting, significant spread of the redness on the leg, increased swelling, increased pain , or other concerns. Referrals: Eric Mensah MD [Primary Care Provider] - As per Instructions
[2018-06-08 17:47] VITALS: BP 148/92
== END 2018-06-08 17:43 | disposition home or self-care (01) ==
LOC: CED 16:04
DX: L03.115 Cellulitis of right lower limb (principal); Z86.14 Personal history of Methicillin resistant Staphylococcus aureus infection
CPT/HCPCS: 80048-ER; 83605-ER; 96365; 99284-ER; J0696

== ENCOUNTER 2018-06-09 12:06 | Emergency (ER) | payer OTHER ==
--- NOTE | 2018-06-09 12:38 | EDPHY ---
H & P Time Seen by Provider: 06/09/18 12:31 HPI/ROS: Chief complaint. Leg cellulitis HPI. Patient is 63-year-old male with history of her current lower extremity cellulitis. He has had redness to the right lower extremity for 2 days. He noticed hot water burning on his lower leg 2 evenings ago. He took Augmentin that night and then took 1 yesterday morning. He was seen in our emergency department yesterday and was given 1 g of ceftriaxone IV. Margins were drawn with a marker and today the redness is retreating inside the margins. He had a normal CBC, glucose, lactate yesterday. He was hospitalized November 2017 for lower leg cellulitis. He has had no fever. He returns today as instructed for repeat dose of ceftriaxone ROS 10 systems were reviewed and negative with the exception of the elements mentioned in the history of present illness Past Medical/Surgical History: Chronic back pain on opiates, recurrent lower extremity cellulitis, migraines, hypertension, dyslipidemia, TIA, TBI with bipolar illness, chronic lymphadenopathy Social History: , nonsmoker, no alcohol Smoking Status: Never smoked Physical Exam: General Appearance: Alert pleasant well-developed male mild distress vital signs are stable Eyes: Pupils equal and round no pallor or injection. ENT, Mouth: Mucous membranes are moist. Respiratory: There are no retractions, lungs are clear to auscultation. Cardiovascular: Regular rate and rhythm. Gastrointestinal: Abdomen is soft and nontender, no masses, bowel sounds normal. Neurological: Awake and alert, sensory and motor exams grossly normal. Skin: Dull dish colored erythema to the dorsum of his foot and anterior right mancilla. Erythema is retreating within the margins. No evidence for extension. Musculoskeletal: Neck is supple nontender. Extremities symmetrical, full range of motion. Psychiatric: Patient is oriented X 3, there is no agitation. Constitutional: Initial Vital Signs Temperature (C) 37.3 C 06/09/18 12:11 Heart Rate 83 06/09/18 12:11 Respiratory Rate 18 06/09/18 12:11 Blood Pressure 141/86 H 06/09/18 12:11 O2 Sat (%) 93 06/09/18 12:11 O2 Delivery Mode Room Air Allergies/Adverse Reactions: Sulfa (Sulfonamide Antibiotics) Allergy (Mild, Verified 06/09/18 12:11) RASH/RED SKIN YELLOWJACKETS Allergy (Severe, Uncoded 01/03/14 23:30) INFLAMMED AND SWOLLEN ENVIRONMENTAL Allergy (Mild, Uncoded 01/03/14 23:30) NASAL CONGESTION Home Medications: Medication Instructions Recorded Butterbur Root Extract [Petadolex 75 mg PO TID 04/08/16 75] Fluticasone Nasal [Flonase Nasal 4 sprays NASAL HS 04/08/16 [place]] HYDROmorphone HCL [Dilaudid] 8 mg PO TID 04/08/16 Methocarbamol [Robaxin 750 mg (*)] 750 mg PO TID 04/08/16 OLANZapine [ZyPREXA 2.5 mg (*)] 2.5 mg PO 04/08/16 Sertraline HCl [Zoloft 50mg (*)] 150 mg PO DAILY 04/08/16 Chondroitin Sulfate A Sodium 1,200 mg PO DAILY 04/27/16 [Optiflex-C] Gluc Dee/Chondro Dee A/Vit C/Mn 1 each PO BID 04/27/16 [Glucosamine 1,500 Complex Cap] Aspirin [Aspirin 81mg (*)] 81 mg PO DAILY 01/20/17 Brimonidine/Timolol [Combigan (*)] 1 drops EACHEYE HS 01/20/17 Cholecalciferol Vit D3 [Vitamin D3 2,000 units PO BID 01/20/17 (*)] Docusate Sodium [Colace 100 MG (*)] 200 mg PO HS 01/20/17 Feosol 28 mg PO DAILY 01/20/17 Fish Oil/Dha/Epa [Fish Oil 1,200 2 cap PO BID 01/20/17 mg Fish Oil] Lansoprazole [Prevacid] 30 mg PO DAILY 01/20/17 Magnesium Oxide [Magnesium] 500 mg PO HS 01/20/17 Melatonin [Melatonin 3 MG (*)] 3 mg PO HS 01/20/17 OLANZapine [ZyPREXA 2.5 mg (*)] 10 mg PO HS 01/20/17 Travoprost Z 0.004% [Travatan Z 1 drops EACHEYE HS 01/20/17 0.004% (*)] HYDROmorphone HCL [Hydromorphone 16 mg PO Q12 12/22/17 ER] Lisdexamfetamine Dimesylate 60 mg PO DAILY 12/22/17 [VYVANSE] Meloxicam [Mobic 15 mg] 15 mg PO DAILY 12/22/17 Metformin HCl [Metformin 1000 mg] 1,000 mg PO BIDMEAL 12/22/17 Testosterone IM [Testosterone 50 mg IM Q14D 12/22/17 100mg/ml IM inj (*)] Augmentin 875 MG TAB (*) 06/08/18 Medical Decision Making Procedures: IV ceftriaxone ED Course/Re-evaluation: Patient remained stable. The patient and I discussed treatment plan including beginning oral antibiotics. He has Augmentin at home that had been previously prescribed for this by Infectious Disease. The patient plans to call [facility] tomorrow for follow-up. He and I discussed treatment plan including criteria for return and importance of follow-up and further evaluation. He expresses understanding and agreement Differential Diagnosis: Cellulitis that has responded overnight to IV ceftriaxone. No evidence of and extension. No evidence of systemic illness. Departure - Departure Disposition: Home, Routine, Self-Care Clinical Impression: Cellulitis Qualifiers: Site of cellulitis: extremity Site of cellulitis of extremity: lower extremity Laterality: right Qualified Code(s): L03.115 - Cellulitis of right lower limb Condition: Good Instructions: Cellulitis (ED) Additional Instructions: May begin Augmentin tomorrow morning twice daily. Call [facility] tomorrow for further evaluation. Return sooner for worsening symptoms Referrals: Eric Mensah MD [Primary Care Provider] - As per Instructions Vince Bermudez MD [Medical Doctor] - 1-2 days without fail
[2018-06-09 13:36] VITALS: BP 136/76
== END 2018-06-09 13:34 | disposition home or self-care (01) ==
LOC: CED 12:06
DX: L03.115 Cellulitis of right lower limb (principal)
CPT/HCPCS: 96365; 99284-ER; J0696